=== PATIENT | female | born 1970 | race Caucasian/White ===

== ENCOUNTER 2021-01-28 07:48 | Day surgery (SDC) | payer BC ==
[2021-01-28] MEDS ORDERED: diazePAM 5 MG TAB PO STA (08:55)
[2021-01-28 08:59] VITALS: TEMP 98.1
--- NOTE | 2021-01-28 10:34 | FL ---
Fluoroscopic guided myelogram: CLINICAL HISTORY: Neck pain FINDINGS: The procedure was explained to the patient. The risks, complications, benefits and alternatives were discussed and any questions were answered. Informed consent was obtained. Patient was placed prone on the fluoroscopic table and prepped and draped in the usual sterile fashion. Utilizing a 25 gauge needle, access into the thecal sac at the L4-L5 levels achieved and there is instillation of 6 cc of nonionic contrast. The contrast column was manipulated into the cervical spine and the patient was sent to CT scan for postmyelogram CT Patient was stable throughout the procedure. No postprocedural complication. All elements of maximal barrier and sterile technique were utilized. No images were submitted. 2 minutes and 12 seconds of fluoroscopy provided. IMPRESSION: 1. Successful fluoroscopic-guided myelogram. CT scan to follow.
--- NOTE | 2021-01-28 12:44 | CT ---
EXAMINATION TYPE: CT cervical spine w con DATE OF EXAM: 01/28/2021 COMPARISON: None HISTORY: Neck pain CT DLP: 499.10 mGycm Automated exposure control for dose reduction was used. CONTRAST: 7 cc of intrathecal contrast was instilled during the course of a myelogram. FINDINGS: Alignment is anatomic. Vertebral body height and disc interspace appears well preserved. No compressi on deformities. At C2-C3 there is no disc herniation or canal stenosis. Neural foramina are patent. At C3-C4 there may be minimal central disc bulging but no disc herniation, canal stenosis or foramina l encroachment. At C4-C5 there is no disc herniation or canal stenosis. No foraminal encroachment. At C5-C6 there may be very minimal central disc bulging but there is no evidence of disc herniation o r foraminal encroachment. At C6-C7 no foraminal encroachment. A question of a very small central and right paracentral disc bul ge effacing the thecal sac. Neural foramina patent. At C7-T1 no obvious disc herniation, canal stenosis, or foraminal encroachment. There is calcification in the right lobe of thyroid with probable small nodule. Lung apices clear. Th ere is a 1 cm left parotid gland nodule. IMPRESSION: 1. There is minimal disc bulging at multiple levels as discussed above with no discrete herniation or foraminal encroachment. Disc spaces are well preserved. 2. 1 cm left parotid nodule recommend correlation with parotid gland ultrasound.
[2021-01-28 16:33] VITALS: RESP 16
[2021-01-28 16:46] VITALS: BP 131/66; PULSE 77
== END 2021-01-28 14:00 | disposition home or self-care (01) ==
LOC: RADPROMAIN 07:48
PROVIDERS: ATTEND Orthopaedic Surgery
DX: M50.122 Cervical disc disorder at C5-C6 level with radiculopathy (principal); M48.02 Spinal stenosis, cervical region; F17.210 Nicotine dependence, cigarettes, uncomplicated; Z82.49 Family history of ischemic heart disease and other diseases of the circulatory system; Z83.3 Family history of diabetes mellitus; E11.9 Type 2 diabetes mellitus without complications; E03.9 Hypothyroidism, unspecified; E05.00 Thyrotoxicosis with diffuse goiter without thyrotoxic crisis or storm; M60.9 Myositis, unspecified; M60.88 Other myositis, other site; I25.2 Old myocardial infarction; M47.9 Spondylosis, unspecified; Z98.891 History of uterine scar from previous surgery; Z98.51 Tubal ligation status; Z96.698 Presence of other orthopedic joint implants; Z98.890 Other specified postprocedural states; Z79.84 Long term (current) use of oral hypoglycemic drugs; Z79.1 Long term (current) use of non-steroidal anti-inflammatories (NSAID); Z79.82 Long term (current) use of aspirin; Z79.890 Hormone replacement therapy; Z79.899 Other long term (current) drug therapy; Z88.1 Allergy status to other antibiotic agents; Z88.5 Allergy status to narcotic agent; Z88.8 Allergy status to other drugs, medicaments and biological substances
CPT/HCPCS: 62302; 72126; Q9967

== ENCOUNTER 2021-05-29 07:46 | Day surgery (SDC) | payer BC ==
[~2021-05-29 07:46] MED LIST: LACTATED RINGERS 1,000 ML IV SCH; LIDOCAINE 1% (10MG/ML) FOR IV START INTRADERMA PRN
[2021-05-29 08:05] VITALS: TEMP 96
[2021-05-29 08:13] LABS: Glucose,Whole Blood 96 mg/dL (75-99)
[2021-05-29] MEDS ORDERED: MIDAZOLAM 2 MG/2 ML VIAL ONE (08:54)
[2021-05-29] MEDS ORDERED: IOPAMIDOL M200 10 ML VIAL ONE (08:54)
[2021-05-29] MEDS ORDERED: DEXAMETHASONE SOD PHOSPHATE 10 MG/ML 1 ML VIAL ONE (08:54)
[2021-05-29] MEDS ORDERED: fentaNYL (PF) 50 MCG/ML 2 ML AMP ONE (08:54)
[2021-05-29] MEDS ORDERED: ROPIVACAINE 5MG/ML 20ML VIAL ONE (08:54)
--- NOTE | 2021-05-29 09:41 | P.PCN ---
Date of Procedure: 05/29/21 Procedure(s) Performed: PREOPERATIVE DIAGNOSIS: 1-Cervical Spondylosis with Facet Arthropathy.without myelopathy. 2-cervical radiculopathy POSTOPERATIVE DIAGNOSIS: Same as preoperative diagnosis. PROCEDURES:1- Diagnostic Right C4 , C5 , and C6 medial branch blocks, with fluoroscopic guidance (fluoroscopy images available in radiology department ). 2- Left side cervical selective nerve root block at C5 6 level ANESTHESIA: Monitored anesthesia care as per anesthesia department . EBL: Minimal PROCEDURE INDICATION: The patient with neck pain secondary to cervical arthropathy unresponsive to more conservative treatments. PROCEDURE DESCRIPTION / TECHNIQUE: The patient was seen and identified in the preoperative area. Risks, benefits, complications, and alternatives were discussed with the patient, the patient agreed to proceed with the procedure and signed the consent. IV was started. Vital signs remained stable throughout the procedure. Do the left side selective nerve root block at C5 6, patient placed in supine position , the left side cervical area prepped with chlorhexedine, then local infiltration of the skin and subcu tissue infiltration with lidocaine 1% 2ml , and 25-gauge Quincke Needle advanced slowly under fluoroscopy and placed in the inferior border of C5 6 foraminal, then after needle placement confirmed with AP and lateral view Isovue 200 one mL injected and showed appropriate needle placement with spread in the foramina, of C5 6, then after negative aspiration for heme, and there was negative aspiration for cerebrospinal fluid, senators on 10 mg mixed with 1 ML of preservative-free normal saline mixed with her and injected after negative aspiration patient tolerated the procedure well without any complications . The patient was placed in the Lateral positions ( Right side up ) on the procedure table. The cervical area was prepped and draped in the usual sterile fashion. Critical pause was taken. Vital signs were closely monitored during the procedure. Conscious sedation was used during the procedure to decrease patients anxiety. Using cross-table lateral fluoroscopy, the centroid of the trapezoid of right C4 , C5 and C6, was identified, marked, and localized with 1% lidocaine 1 ml at each level for skin and Sub Q infiltrations . Subsequently, a 25 G 3 spinal needle was advanced guided by fluoroscopy to the centroid of the trapezoid of Right C4 , C5, C6 . Forman tip position was confirmed at the centroid of the trapezoids of Right C4 , C5 ,C6 with anteroposterior fluoroscopy. Subsequently, 2 ml of preservative-free Ropivacaine 0.5% mixed with Dexamethasone 10 mg and half ml of the mixture was injected after negative aspiration for blood and CSF. Forman was then removed inatct COMPLICATIONS: No acute complications. DISPOSITION / PLANS: The patient was placed in a supine position and transferred to the recovery area in a stable condition for observation and was discharged from the recovery room after meeting discharge criteria. Home discharge instructions given to the patient by the staff. The patient was reexamined prior to discharge. The patient will schedule a follow up in the clinic in 2-4 weeks.
[2021-05-29 09:44] VITALS: RESP 16
[2021-05-29] MEDS ORDERED: IV FLUID CONTINUATION 900 ML IV ONE (09:44)
[2021-05-29] MEDS ORDERED: LACTATED RINGERS 1,000 ML IV ONE (09:44)
[2021-05-29 09:59] VITALS: BP 133/85; PULSE 72
--- NOTE | 2021-05-29 12:53 | FL ---
Fluoroscopy INDICATION: Pain FINDINGS: Fluoroscopy time: 31 seconds. Images obtained: 5. IMPRESSIONS: 1. Documentation of fluoroscopy.
== END 2021-05-29 10:11 | disposition home or self-care (01) ==
LOC: ORPAIN 07:46
PROVIDERS: ATTEND Specialist
DX: M47.22 Other spondylosis with radiculopathy, cervical region (principal)
CPT/HCPCS: 64483; 64490; 64491; J2250; J1100; J3010; Q9966; J2795

== ENCOUNTER 2021-09-10 21:38 | Emergency (ER) | payer BC ==
[2021-09-10 22:43] VITALS: BP 150/81; PULSE 83; RESP 20; TEMP 97.9
[2021-09-10] MEDS ORDERED: FAMOTIDINE 20 MG TAB PO STA (23:24)
[2021-09-10] MEDS ORDERED: diphenhydrAMINE 50 MG CAP PO STA (23:24)
--- NOTE | 2021-09-11 00:07 | ED ---
General Adult HPI - General Chief complaint: Skin/Abscess/Foreign Body Stated complaint: Rash Time Seen by Provider: 09/10/21 22:49 Source: patient, RN notes reviewed Mode of arrival: ambulatory Limitations: no limitations - History of Present Illness Initial comments: 51-year-old female presents to the emergency Department with complaints of rash on bilateral upper extremities, onset 2 days ago. States the rash worsened yesterday and went to urgent care where she received an injection of steroid. Has been taking Benadryl and applying hydrocortisone topically. States she is a diabetic and had elevated blood sugar last night due to steroid injection. Complaints of increased itching. Reports rash continues to spread and now has a patchy area on her right lower abdomen. Patient recently had a nerve stimulator implanted. Denies any other medications. No travel or other new exposures. - Related Data Home Medications Medication Instructions Recorded Confirmed Ascorbic Acid [Vitamin C] 1,000 mg PO DAILY 01/09/21 05/27/21 Aspirin [Adult Low Dose Aspirin EC] 81 mg PO DAILY 01/09/21 05/27/21 Atorvastatin [Lipitor] 80 mg PO HS 01/09/21 05/27/21 Calcium Carbonate [Calcium] 1,200 mg PO DAILY 01/09/21 05/27/21 Cholecalciferol [Vitamin D3 (25 50 mcg PO DAILY 01/09/21 05/27/21 Mcg = 1000 Iu)] Cinnamon Bark [Cinnamon] 1,500 mg PO DAILY 01/09/21 05/27/21 Clopidogrel [Plavix] 75 mg PO DAILY 01/09/21 05/27/21 Cyanocobalamin (Vitamin B-12) 1,000 mcg PO DAILY 01/09/21 05/27/21 [Vitamin B-12] Dapagliflozin Propanediol [Farxiga] 10 mg PO DAILY 01/09/21 05/27/21 Ferrous Sulfate [Iron (65 MG 1 tab PO DAILY 01/09/21 05/27/21 Elemental)] Gabapentin [Neurontin] 300 mg PO TID 01/09/21 05/27/21 Levothyroxine Sodium 88 mcg PO DAILY 01/09/21 05/27/21 Semaglutide [Ozempic] 1 mg SQ WEEKLY 01/09/21 05/27/21 Turmeric Root Extract [Turmeric] 1 tab PO DAILY 01/09/21 05/27/21 Zinc 50 mg PO DAILY 01/09/21 05/27/21 glipiZIDE [Glucotrol XL] 10 mg PO DAILY 01/09/21 05/27/21 metFORMIN HCL 500 mg PO BID 01/09/21 05/27/21 DULoxetine HCL [Cymbalta] 20 mg PO DAILY 05/27/21 05/27/21 Vitamin B Complex 1 each PO DAILY 05/27/21 05/27/21 Allergies Allergy/AdvReac Type Severity Reaction Status Date / Time erythromycin base Allergy cardiac Verified 09/10/21 22:43 arrest methimazole Allergy depleated Verified 09/10/21 22:43 white blood cells morphine Allergy Nausea & Verified 09/10/21 22:43 Vomiting Review of Systems ROS Statement: Those systems with pertinent positive or pertinent negative responses have been documented in the HPI. ROS Other: All systems not noted in ROS Statement are negative. Past Medical History Past Medical History: Coronary Artery Disease (CAD), Diabetes Mellitus, Thyroid Disorder Additional Past Medical History / Comment(s): work injury 2018 -states she has nerve damage and left arm weakness History of Any Multi-Drug Resistant Organisms: None Reported Past Surgical History: Section, Heart Catheterization With Stent, Hysterectomy, Orthopedic Surgery, Tubal Ligation Additional Past Surgical History / Comment(s): left arm surgery times 4 for weakness and nerve damage, carpal tunnel release, radial and second dorsal compartment release, right toe surgery,cubital tunnel release lt arm Past Anesthesia/Blood Transfusion Reactions: No Reported Reaction, Family History of Problems w/ Anesthesia Additional Past Anesthesia/Blood Transfusion Reaction / Comment(s): no previous blood transfusion, mother has had problems with anesthesia-pt does not know details Date of Last Stent Placement:: November 2019 Past Psychological History: No Psychological Hx Reported Smoking Status: Current every day smoker Past Alcohol Use History: None Reported Past Drug Use History: None Reported - Past Family History Mother Family Medical History: Cancer, Diabetes Mellitus General Exam Limitations: no limitations (Well-developed, well-nourished female in no acute distress. Initial temperature 97.9, pulse 83, respirations 20, blood pressure 150/81, pulse ox 98% on room air.) General appearance: alert, in no apparent distress ENT exam: Present: normal exam, normal oropharynx, mucous membranes moist Neck exam: Present: normal inspection, full ROM. Absent: tenderness, meningismus, lymphadenopathy Respiratory exam: Present: normal lung sounds bilaterally. Absent: respiratory distress, wheezes, rales, rhonchi, stridor Cardiovascular Exam: Present: regular rate, normal rhythm, normal heart sounds. Absent: systolic murmur, diastolic murmur, rubs, gallop, clicks GI/Abdominal exam: Present: soft, normal bowel sounds. Absent: distended, tenderness, guarding, rebound, rigid Back exam: Present: other (Dressing intact from stimulator implant.) Neurological exam: Present: alert, oriented X3, CN II-XII intact Psychiatric exam: Present: normal affect, normal mood Skin exam: Present: rash Expanded Type of lesion: Present: rash Distribution of rash: abdomen (appears to be a contact dermatitis; erythematous base with scattered macules. Pruritis), RUE, LUE (Scattered papules and wheals. Non-erythematous base. Blanchable. Pruritis. ) Course Vital Signs 09/10/21 22:38 Temperature 97.9 F Pulse Rate 83 Respiratory 20 Rate Blood Pressure 150/81 O2 Sat by Pulse 98 Oximetry Medical Decision Making - Medical Decision Making 51-year-old female with a past medical history of type 2 diabetes presents to the emergency department for evaluation of rash to bilateral upper extremities and an abdominal wall.. Upon exam, patient is well-appearing and in no acute distress. She is having no systemic symptoms. Appearance of rash on bilateral arms is scattered papular rash-origin and etiology unknown. Rash on right lower abdomen is consistent with contact dermatitis- barrier placed between rash and likely culprit. Patient was seen at urgent care and given a steroid injection which caused a significant elevation in her blood sugar. States she took Benadryl at home yesterday and applied calamine and topical hydrocortisone. Is awaiting appointment with dermatology. I discussed my hesitation to prescribe any steroid due to patient's hyperglycemia. She is agreeable with this. Given oral Benadryl and Pepcid with no significant change. Instructed to continue home medication regimen and follow up with dermatology as soon as possible. Return parameters were discussed in detail. Patient verbalizes understanding and agrees with this plan. Attending: Ester. Disposition Clinical Impression: Pruritic rash Disposition: HOME SELF-CARE Condition: Stable Instructions (If sedation given, give patient instructions): Acute Rash (ED), Dermatitis (ED) Additional Instructions: Continue taking Benadryl and Pepcid for antihistamine. Continue applying topical agents including calamine and hydrocortisone. Follow-up with dermatology as soon as possible. Return to the emergency department with any new, worsening, or concerning symptoms such as fever, difficulty breathing, or chest pain. Is patient prescribed a controlled substance at d/c from ED?: No Referrals: Mumtaz Christianson DO [Primary Care Provider] - 1-2 days Time of Disposition: 01:21
== END 2021-09-11 01:25 | disposition home or self-care (01) ==
LOC: EC 21:38
DX: L29.9 Pruritus, unspecified (principal); I25.10 Atherosclerotic heart disease of native coronary artery without angina pectoris; E11.9 Type 2 diabetes mellitus without complications; E07.9 Disorder of thyroid, unspecified; F17.200 Nicotine dependence, unspecified, uncomplicated; Z88.6 Allergy status to analgesic agent; Z88.1 Allergy status to other antibiotic agents; Z88.8 Allergy status to other drugs, medicaments and biological substances; Z79.82 Long term (current) use of aspirin; Z79.899 Other long term (current) drug therapy
CPT/HCPCS: 99282

== ENCOUNTER 2021-11-15 23:24 | Observation (INO) | payer BC ==
--- NOTE | 2021-11-15 23:52 | ED ---
Chest Pain HPI - General Chief Complaint: Chest Pain Stated Complaint: Chest Pain & tightness Time Seen by Provider: 11/15/21 23:44 Source: patient, RN notes reviewed, old records reviewed Mode of arrival: ambulatory Limitations: no limitations - History of Present Illness Initial Comments: This is a 51-year-old female to the emergency department for evaluation. Patient resents today for evaluation of chest pain left-sided chest pain heaviness episodic for the last few days. Patient has seen a claims adjuster crop scheduled for stress test tomorrow. Patient has a history of 3 stents placed in her heart. This pain is been again persistent for a week or so blood progressively worsened tonight. No shortness of breath or sweating noted. No recent fever cough congestion or illness. Again patient has history of CAD and diabetes MD Complaint: chest pain -: days(s) Onset: during rest, during exertion Pain Location: left chest Pain Radiation: none Severity: moderate Severity scale (1-10): 5 Quality: heaviness Consistency: intermittent Improves With: nothing Worsens With: nothing Anginal Symptoms: dyspnea Other Symptoms: palpitations Treatments Prior to Arrival: none - Related Data Home Medications Medication Instructions Recorded Confirmed Ascorbic Acid [Vitamin C] 1,000 mg PO DAILY 01/09/21 05/27/21 Aspirin [Adult Low Dose Aspirin EC] 81 mg PO DAILY 01/09/21 05/27/21 Atorvastatin [Lipitor] 80 mg PO HS 01/09/21 05/27/21 Calcium Carbonate [Calcium] 1,200 mg PO DAILY 01/09/21 05/27/21 Cholecalciferol [Vitamin D3 (25 50 mcg PO DAILY 01/09/21 05/27/21 Mcg = 1000 Iu)] Cinnamon Bark [Cinnamon] 1,500 mg PO DAILY 01/09/21 05/27/21 Clopidogrel [Plavix] 75 mg PO DAILY 01/09/21 05/27/21 Cyanocobalamin (Vitamin B-12) 1,000 mcg PO DAILY 01/09/21 05/27/21 [Vitamin B-12] Dapagliflozin Propanediol [Farxiga] 10 mg PO DAILY 01/09/21 05/27/21 Ferrous Sulfate [Iron (65 MG 1 tab PO DAILY 01/09/21 05/27/21 Elemental)] Gabapentin [Neurontin] 300 mg PO TID 01/09/21 05/27/21 Levothyroxine Sodium 88 mcg PO DAILY 01/09/21 05/27/21 Semaglutide [Ozempic] 1 mg SQ WEEKLY 01/09/21 05/27/21 Turmeric Root Extract [Turmeric] 1 tab PO DAILY 01/09/21 05/27/21 Zinc 50 mg PO DAILY 01/09/21 05/27/21 glipiZIDE [Glucotrol XL] 10 mg PO DAILY 01/09/21 05/27/21 metFORMIN HCL 500 mg PO BID 01/09/21 05/27/21 DULoxetine HCL [Cymbalta] 20 mg PO DAILY 05/27/21 05/27/21 Vitamin B Complex 1 each PO DAILY 05/27/21 05/27/21 Allergies Allergy/AdvReac Type Severity Reaction Status Date / Time erythromycin base Allergy cardiac Verified 11/15/21 23:28 arrest methimazole Allergy depleated Verified 11/15/21 23:28 white blood cells morphine Allergy Nausea & Verified 11/15/21 23:28 Vomiting Review of Systems ROS Statement: Those systems with pertinent positive or pertinent negative responses have been documented in the HPI. ROS Other: All systems not noted in ROS Statement are negative. EKG Findings - EKG Comments: EKG Findings:: EKG is sinus rhythm 65 [place] 187 QRS 111 QTc 408. Has seen no ST elevation. EKG 2 shows sinus rhythm 70 [place] 194 QRS 111 QTc 432. Significant change. EKG 3 also shows no morphological changes or ST elevation Past Medical History Past Medical History: Coronary Artery Disease (CAD), Diabetes Mellitus, Thyroid Disorder Additional Past Medical History / Comment(s): work injury 2017 -states she has nerve damage and left arm weakness History of Any Multi-Drug Resistant Organisms: None Reported Past Surgical History: Section, Heart Catheterization With Stent, Hysterectomy, Orthopedic Surgery, Tubal Ligation Additional Past Surgical History / Comment(s): left arm surgery times 4 for weakness and nerve damage, carpal tunnel release, radial and second dorsal compartment release, right toe surgery,cubital tunnel release lt arm Past Anesthesia/Blood Transfusion Reactions: No Reported Reaction, Family History of Problems w/ Anesthesia Additional Past Anesthesia/Blood Transfusion Reaction / Comment(s): no previous blood transfusion, mother has had problems with anesthesia-pt does not know details Date of Last Stent Placement:: November 2019 Past Psychological History: No Psychological Hx Reported Smoking Status: Current every day smoker Past Alcohol Use History: None Reported Past Drug Use History: None Reported - Past Family History Mother Family Medical History: Cancer, Diabetes Mellitus General Exam Limitations: no limitations General appearance: alert, in no apparent distress Head exam: Present: atraumatic, normocephalic, normal inspection Eye exam: Present: normal appearance, PERRL, EOMI. Absent: scleral icterus, conjunctival injection, periorbital swelling ENT exam: Present: normal exam, mucous membranes moist Neck exam: Present: normal inspection. Absent: tenderness, meningismus, lymphadenopathy Respiratory exam: Present: normal lung sounds bilaterally. Absent: respiratory distress, wheezes, rales, rhonchi, stridor Cardiovascular Exam: Present: regular rate, normal rhythm, normal heart sounds. Absent: systolic murmur, diastolic murmur, rubs, gallop, clicks GI/Abdominal exam: Present: soft, normal bowel sounds. Absent: distended, tenderness, guarding, rebound, rigid Extremities exam: Present: normal inspection, full ROM, normal capillary refill. Absent: tenderness, pedal edema, joint swelling, calf tenderness Back exam: Present: normal inspection Neurological exam: Present: alert, oriented X3, CN II-XII intact Psychiatric exam: Present: normal affect, normal mood Skin exam: Present: warm, dry, intact, normal color. Absent: rash Course Vital Signs 11/15/21 11/15/21 11/16/21 23:25 23:52 00:32 Temperature 97.2 F L Pulse Rate 74 68 Pulse Rate [ 78 Apical] Respiratory 20 18 14 Rate Blood Pressure 167/93 129/89 O2 Sat by Pulse 100 97 Oximetry - Reevaluation(s) Reevaluation #1: 11/16/21 00:00 Medical records reviewed Reevaluation #2: 11/16/21 01:20 Patient still with chest pain here in the ER Reevaluation #3: 11/16/21 01:20 Patient informed of results and questions answered - Consultations Consultation #1: Spoke with sound who agrees to admit this patient Chest Pain MDM - MDM 51 female DF for evaluation patient has a for evaluation of chest pain patient has history of RI with 3 stents, patient will be admitted for chest pain observation Critical Care Time Critical Care Time: Yes Total Critical Care Time: 31 Disposition Clinical Impression: Chest pain, Unstable angina pectoris Disposition: ADMITTED IP TO THIS HOSP Condition: Undetermined Is patient prescribed a controlled substance at d/c from ED?: No Referrals: Mumtaz Christianson DO [Primary Care Provider] - 1-2 days Time of Disposition: 01:15
[2021-11-16 00:21] LABS: Basophils # (A) 0.1 k/uL (0-0.2); Basophils % (A) 1 %; Eosinophils # (A) 0.3 k/uL (0-0.7); Eosinophils % (A) 3 %; HCT 45.1 % (34.0-46.0); HGB 15.7 gm/dL (11.4-16.0); Lymphocytes # (A) 3.2 k/uL (1.0-4.8); Lymphocytes % (A) 29 %; MCH 30.9 pg (25.0-35.0); MCHC 34.8 g/dL (31.0-37.0); MCV 88.8 fL (80.0-100.0); Mean Platelet Volume 7.2; Monocytes # (A) 0.6 k/uL (0-1.0); Monocytes % (A) 5 %; Neutrophils # (A) 6.5 k/uL (1.3-7.7); Neutrophils % (A) 59 %; Platelet Count 336 k/uL (150-450); RBC 5.08 m/uL (3.80-5.40); RDW 12.5 % (11.5-15.5)
--- NOTE | 2021-11-16 00:25 | XR ---
EXAMINATION TYPE: XR chest 1V DATE OF EXAM: 11/15/2021 COMPARISON: NONE HISTORY: Chest pain TECHNIQUE: Single view FINDINGS: Heart is normal. Lungs are clear of infiltrate. No heart failure. There are no hilar masses . Bony thorax is intact. There are chest leads. IMPRESSION: Normal chest
[2021-11-16 00:26] LABS: INR 0.9 (<1.2); Partial Thromboplastin Time 23.8 sec (22.0-30.0); Prothrombin Time 9.7 sec (9.0-12.0)
[2021-11-16 00:28] LABS: ALT 28 U/L (4-34); AST 27 U/L (14-36); African American GFR (CKD) >90 (>60 ml/min/1.73 sqM); Albumin 4.6 g/dL (3.5-5.0); Alkaline Phosphatase 95 U/L (38-126); Anion Gap 14 mmol/L; Blood Urea Nitrogen 12 mg/dL (7-17); Carbon Dioxide 24 mmol/L (22-30); Chloride 101 mmol/L (98-107); Glucose 215 mg/dL (74-99); Magnesium 1.7 mg/dL (1.6-2.3); Non-African American GFR(CKD) >90 (>60 ml/min/1.73 sqM); Potassium 3.6 mmol/L (3.5-5.1); Sodium 139 mmol/L (137-145); Total Bilirubin 0.6 mg/dL (0.2-1.3); Total Protein 7.4 g/dL (6.3-8.2)
[2021-11-16] MEDS ORDERED: HYDROmorphone 1 MG/ML 1 ML SYRINGE IVP STA (01:12)
[2021-11-16] MEDS ORDERED: NITROGLYCERIN SL TABS 0.4 MG TAB SUBLINGUAL PRN ×2 (01:18→13:07)
[2021-11-16] MEDS ORDERED: HEPARIN SODIUM 1,000 UN/ML (10ML VL) IV ONE (01:18)
[2021-11-16] MEDS ORDERED: ASPIRIN 81 MG PO STA (01:18)
[2021-11-16] MEDS ORDERED: HEPARIN SOD,PORK IN 0.45% NACL 25,000 UNIT in 0.45% NACL 1 250ML.BAG IV SCH (01:30)
[2021-11-16] MEDS: SODIUM CHLORIDE 0.9% 1,000 ML IV SCH (01:33)
--- NOTE | 2021-11-16 04:51 | P.HPIM ---
History of Present Illness H&P Date: 11/16/21 The patient is a 51-year-old female with a PMH of type II DM, CAD status post stenting, and hypothyroid rhythm who presents to the emergency room with complaints of chest pain. The patient reports that she has been experiencing intermittent substernal chest discomfort since this past Tuesday. Reports seeing her curator in the clinic on Tuesday and that she is scheduled to undergo a stress test in the morning. States however that her pain acutely worsened earlier today, at which point she decided to come to the emergency room. Reports 68 out of 10 substernal chest tightness, nonradiating, constant, with no alleviating or exacerbating features. Reports associated shortness of breath and nausea. Reports the pain is similar to when she had her prior MIs requiring stenting. Denies expressing fever, chills, cough, lower stomach swelling, lower extremities pain. EKG emergency room reveals sinus rhythm at 65 bpm with diffuse T-wave flattening with poor R-wave progression. Chest x-ray was unremarkable. Laboratory evaluation was remarkable for troponin less than 0.012 with WBC count 11.0. Review of systems: Pertinent positives and negatives as discussed in HPI, a complete review of systems was performed and all other systems are negative. Physical examination: General: non toxic, no distress, appears at stated age, obese Derm: no unusual rashes/lesions, warm Head: atraumatic, normocephalic, symmetric Eyes: EOMI, no lid lag, anicteric sclera, pupils equal round reactive to light ENT: Nose and ears atraumatic Neck: No cervical lymphadenopathy, trachea midline, supple Mouth: no lip lesion, mucus membranes moist Cardiovascular: S1S2 reg, no murmur, positive dorsalis pedis pulse bilateral, no edema Lungs: CTA bilateral, no rhonchi, no rales, no accessory muscle use Abdominal: soft, nontender to palpation, no guarding Ext: muscle strength 5 out of 5 in all 4 extremities grossly, no gross muscle atrophy, no contractures, Neuro: CN II-XI grossly intact, no gross focal neuro deficits Psych: Alert, oriented, appropriate affect Assessment/plan Unstable angina -Continue with heparin infusion, aspirin, statin -Cardiology consulted -Trend troponin -Cardiac monitoring Leukocytosis -Likely due to acute stressor -No signs of active infection at this time Chronic conditions: Type II DM, hypothyroidism -Continue with home medications once confirmed DVT prophylaxis -Heparin infusion The patient is admitted with an anticipated less than 2 midnight stay for evaluation of unstable angina CODE STATUS: Full Code Discussed with: Patient Anticipated discharge date: in am Anticipated discharge place: Home Past Medical History Past Medical History: Coronary Artery Disease (CAD), Diabetes Mellitus, Thyroid Disorder Additional Past Medical History / Comment(s): work injury 2018 -states she has nerve damage and left arm weakness History of Any Multi-Drug Resistant Organisms: None Reported Past Surgical History: Section, Heart Catheterization With Stent, Hysterectomy, Orthopedic Surgery, Tubal Ligation Additional Past Surgical History / Comment(s): left arm surgery times 4 for weakness and nerve damage, carpal tunnel release, radial and second dorsal compartment release, right toe surgery,cubital tunnel release lt arm Past Anesthesia/Blood Transfusion Reactions: No Reported Reaction, Family History of Problems w/ Anesthesia Additional Past Anesthesia/Blood Transfusion Reaction / Comment(s): no previous blood transfusion, mother has had problems with anesthesia-pt does not know details Date of Last Stent Placement:: November 2019 Past Psychological History: No Psychological Hx Reported Smoking Status: Current every day smoker Past Alcohol Use History: None Reported Past Drug Use History: None Reported - Past Family History Mother Family Medical History: Cancer, Diabetes Mellitus Medications and Allergies Home Medications Medication Instructions Recorded Confirmed Type Ascorbic Acid [Vitamin C] 1,000 mg PO DAILY 01/09/21 05/27/21 History Aspirin [Adult Low Dose Aspirin EC] 81 mg PO DAILY 01/09/21 05/27/21 History Atorvastatin [Lipitor] 80 mg PO HS 01/09/21 05/27/21 History Calcium Carbonate [Calcium] 1,200 mg PO DAILY 01/09/21 05/27/21 History Cholecalciferol [Vitamin D3 (25 50 mcg PO DAILY 01/09/21 05/27/21 History Mcg = 1000 Iu)] Cinnamon Bark [Cinnamon] 1,500 mg PO DAILY 01/09/21 05/27/21 History Clopidogrel [Plavix] 75 mg PO DAILY 01/09/21 05/27/21 History Cyanocobalamin (Vitamin B-12) 1,000 mcg PO DAILY 01/09/21 05/27/21 History [Vitamin B-12] Dapagliflozin Propanediol [Farxiga] 10 mg PO DAILY 01/09/21 05/27/21 History Ferrous Sulfate [Iron (65 MG 1 tab PO DAILY 01/09/21 05/27/21 History Elemental)] Gabapentin [Neurontin] 300 mg PO TID 01/09/21 05/27/21 History Levothyroxine Sodium 88 mcg PO DAILY 01/09/21 05/27/21 History Semaglutide [Ozempic] 1 mg SQ WEEKLY 01/09/21 05/27/21 History Turmeric Root Extract [Turmeric] 1 tab PO DAILY 01/09/21 05/27/21 History Zinc 50 mg PO DAILY 01/09/21 05/27/21 History glipiZIDE [Glucotrol XL] 10 mg PO DAILY 01/09/21 05/27/21 History metFORMIN HCL 500 mg PO BID 01/09/21 05/27/21 History DULoxetine HCL [Cymbalta] 20 mg PO DAILY 05/27/21 05/27/21 History Vitamin B Complex 1 each PO DAILY 05/27/21 05/27/21 History Allergies Allergy/AdvReac Type Severity Reaction Status Date / Time erythromycin base Allergy cardiac Verified 11/15/21 23:28 arrest methimazole Allergy depleated Verified 11/15/21 23:28 white blood cells morphine Allergy Nausea & Verified 11/15/21 23:28 Vomiting Physical Exam Vitals: Vital Signs Temp Pulse Pulse Resp BP Pulse Ox 11/16/21 04:28 66 18 118/77 96 11/16/21 03:27 70 14 102/74 98 11/16/21 01:28 70 14 114/78 97 11/16/21 00:32 78 14 11/15/21 23:52 68 18 129/89 97 11/15/21 23:25 97.2 F L 74 20 167/93 100 Intake and Output 11/15/21 11/15/21 11/16/21 14:59 22:59 06:59 Other: Weight 83.007 kg Results CBC & Chem 7: 11/15/21 23:51 11/15/21 23:51 Labs: Abnormal Lab Results - Last 24 Hours (Table) 11/15/21 11/15/21 Range/Units 23:51 23:51 WBC 11.0 H (3.8-10.6) k/uL Glucose 215 H (74-99) mg/dL
[2021-11-16] MEDS: ATORVASTATIN 80 MG TAB PO SCH ×2 (05:33→21:14)
[2021-11-16] MEDS: HYDROmorphone 1 MG/ML 1 ML SYRINGE IVP PRN ×2 (05:39→16:15)
[2021-11-16] MEDS ORDERED: CAFFEINE CITRATE 60 MG/3 ML VIAL IV PRN (08:52)
[2021-11-16] MEDS ORDERED: AMINOPHYLLINE 500 MG/20 ML VIAL IV PRN (08:52)
[2021-11-16] MEDS ORDERED: REGADENOSON 0.4 MG/5 ML SYRINGE IV PRN (08:52)
[2021-11-16] MEDS: GABAPENTIN 300 MG CAP PO SCH ×3 (09:31→21:14)
[2021-11-16] MEDS: LEVOTHYROXINE 88 MCG TAB PO SCH (09:31)
[2021-11-16] MEDS: CLOPIDOGREL 75 MG TAB PO SCH (09:31)
--- NOTE | 2021-11-16 10:06 | P.CRDCN ---
History of Present Illness History of present illness: HISTORY OF PRESENT ILLNESS: This is a 51 year old female with a past medical history significant for coronary artery disease with previous PCI x 3 stents in 2019 (vessel unknown), diabetes, hyperlipidemia, and nicotine dependence. Patient follows with a telephone information supervisor and Harish Martini. We have been asked to see the patient in consultation for chest pain. Patient examined at the bedside. Patient states that she began having chest pain couple weeks ago. She states described the pain as a tightness in the middle of her chest. She also reports having some pain and tingling in her left arm. She reports having nausea as well as hot flashes. She states the pain is nonexertional. She reports she is still having pain this morning and is rating it a 7/10. She states that she feels better when she is sitting up in the bed. She states that she went to see her physician on Tuesday and she was ordered to have a stress test this morning and Harish Martini. * EKG reveals sinus mechanism with no signs of acute ischemia. * Chest xray negative for acute process * Laboratory data: WBC 11.0. Hemoglobin 15.7. Platelet count 336. Sodium 139. Potassium 3.6. BUN 12. Creatinine 0.56. Magnesium 1.7. Troponin negative 3. * Current home cardiac medications include aspirin 81 mg daily, Lipitor 80 mg at night, Plavix 75 mg daily REVIEW OF SYSTEMS: At the time of my exam: CONSTITUTIONAL: Denies fever or chills. HEENT: Denies blurred vision, vision changes, or eye pain. Denies hemoptysis CARDIOVASCULAR: Denies chest pain. Denies orthopnea. Denies PND. Denies palpitations RESPIRATORY: Denies shortness of breath. GASTROINTESTINAL: Denies abdominal pain. Denies nausea or vomiting. HEMATOLOGIC: Denies bleeding disorders. GENITOURINARY: Denies any blood in urine. SKIN: Denies pruitis. Denies rash. PHYSICAL EXAM: VITAL SIGNS: Reviewed. GENERAL: Well-developed in no acute distress. HEENT: Head is normocephalic. Pupils are equal, round. Sclerae anicteric. Mucous membranes of the mouth are moist. Neck supple. No JVD or thyromegaly LUNGS: Respirations even and unlabored. Lungs essentially clear to auscultation bilaterally. HEART: Regular rate and rhythm. S1 and S2 heard. ABDOMEN: Soft. Nondistended. Nontender. EXTREMITIES: Normal range of motion. No clubbing or cyanosis. Peripheral pulses intact. No lower extremity edema NEUROLOGIC: Awake and alert. Oriented x 3. ASSESSMENT: Chest pain Coronary artery disease with previous PCI x 3 (exact details unknown) Hyperlipidemia Diabetes Nicotine dependence PLAN: An acute coronary event has been ruled out Resume home cardiac medications Add metoprolol 12.5 daily Continue telemetry monitoring Check BNP Obtain records from patients primary telephone information supervisor Obtain 2D echo to assess cardiac structure and function Patient to undergo [place] scan stress test today Further recommendations pending patient course Nurse practitioner note has been reviewed by physician. Signing provider agrees with the documented findings, assessment, and plan of care. Past Medical History Past Medical History: Coronary Artery Disease (CAD), Diabetes Mellitus, Thyroid Disorder Additional Past Medical History / Comment(s): work injury 2018 -states she has nerve damage and left arm weakness History of Any Multi-Drug Resistant Organisms: None Reported Past Surgical History: Section, Heart Catheterization With Stent, Hysterectomy, Orthopedic Surgery, Tubal Ligation Additional Past Surgical History / Comment(s): left arm surgery times 4 for weakness and nerve damage, carpal tunnel release, radial and second dorsal compartment release, right toe surgery,cubital tunnel release lt arm Past Anesthesia/Blood Transfusion Reactions: No Reported Reaction, Family History of Problems w/ Anesthesia Additional Past Anesthesia/Blood Transfusion Reaction / Comment(s): no previous blood transfusion, mother has had problems with anesthesia-pt does not know details Date of Last Stent Placement:: November 2019 Past Psychological History: No Psychological Hx Reported Smoking Status: Current every day smoker Past Alcohol Use History: None Reported Past Drug Use History: None Reported - Past Family History Mother Family Medical History: Cancer, Diabetes Mellitus Medications and Allergies Home Medications Medication Instructions Recorded Confirmed Type Ascorbic Acid [Vitamin C] 1,000 mg PO DAILY 01/09/21 11/16/21 History Aspirin [Adult Low Dose Aspirin EC] 81 mg PO DAILY 01/09/21 11/16/21 History Atorvastatin [Lipitor] 80 mg PO HS 01/09/21 11/16/21 History Calcium Carbonate [Calcium] 1,200 mg PO DAILY 01/09/21 11/16/21 History Cinnamon Bark [Cinnamon] 1,500 mg PO DAILY 01/09/21 11/16/21 History Clopidogrel [Plavix] 75 mg PO DAILY 01/09/21 11/16/21 History Cyanocobalamin (Vitamin B-12) 1,000 mcg PO DAILY 01/09/21 11/16/21 History [Vitamin B-12] Dapagliflozin Propanediol [Farxiga] 10 mg PO DAILY 01/09/21 11/16/21 History Ferrous Sulfate [Iron (65 MG 325 mg PO DAILY 01/09/21 11/16/21 History Elemental)] Gabapentin [Neurontin] 300 mg PO TID 01/09/21 11/16/21 History Levothyroxine Sodium 88 mcg PO DAILY 01/09/21 11/16/21 History Semaglutide [Ozempic] 1 mg SQ WE 01/09/21 11/16/21 History Turmeric Root Extract [Turmeric] 500 mg PO DAILY 01/09/21 11/16/21 History Zinc 50 mg PO DAILY 01/09/21 11/16/21 History glipiZIDE [Glucotrol XL] 10 mg PO AC-SUPPER 01/09/21 11/16/21 History metFORMIN HCL 500 mg PO BID 01/09/21 11/16/21 History Vitamin B Complex 1 cap PO DAILY 05/27/21 11/16/21 History Cholecalciferol (Vitamin D3) 125 mcg PO DAILY 11/16/21 11/16/21 History [Vitamin D3 (125 MCG = 5,000 IU)] Allergies Allergy/AdvReac Type Severity Reaction Status Date / Time erythromycin base Allergy cardiac Verified 11/16/21 07:54 arrest methimazole AdvReac depleated Verified 11/16/21 07:54 white blood cells morphine AdvReac Nausea & Verified 11/16/21 07:54 Vomiting Physical Exam Vitals: Vital Signs Temp Pulse Pulse Resp BP Pulse Ox 11/16/21 07:48 62 18 109/69 97 11/16/21 04:28 66 18 118/77 96 11/16/21 03:27 70 14 102/74 98 11/16/21 01:28 70 14 114/78 97 11/16/21 00:32 78 14 11/15/21 23:52 68 18 129/89 97 11/15/21 23:25 97.2 F L 74 20 167/93 100 Intake and Output 11/15/21 11/16/21 11/16/21 22:59 06:59 14:59 Other: Weight 83.007 kg Results 11/15/21 23:51 11/15/21 23:51 Cardiac Enzymes 11/15/21 11/15/21 11/16/21 Range/Units 23:51 23:51 05:05 AST 27 (14-36) U/L Troponin I <0.012 <0.012 (0.000-0.034) ng/mL Coagulation 11/15/21 11/16/21 Range/Units 23:51 07:08 PT 9.7 (9.0-12.0) sec APTT 23.8 34.9 H (22.0-30.0) sec CBC 11/15/21 Range/Units 23:51 WBC 11.0 H (3.8-10.6) k/uL RBC 5.08 (3.80-5.40) m/uL Hgb 15.7 (11.4-16.0) gm/dL Hct 45.1 (34.0-46.0) % Plt Count 336 (150-450) k/uL Comprehensive Metabolic Panel 11/15/21 Range/Units 23:51 Sodium 139 (137-145) mmol/L Potassium 3.6 (3.5-5.1) mmol/L Chloride 101 (98-107) mmol/L Carbon Dioxide 24 (22-30) mmol/L BUN 12 (7-17) mg/dL Creatinine 0.56 (0.52-1.04) mg/dL Glucose 215 H (74-99) mg/dL Calcium 10.0 (8.4-10.2) mg/dL AST 27 (14-36) U/L ALT 28 (4-34) U/L Alkaline Phosphatase 95 (38-126) U/L Total Protein 7.4 (6.3-8.2) g/dL Albumin 4.6 (3.5-5.0) g/dL Current Medications Generic Name Dose Route Start Last Admin Trade Name Freq PRN Reason Stop Dose Admin Aspirin 325 mg 11/17/21 09:00 Aspirin 325 Mg Tab PO DAILY YUNI Atorvastatin Calcium 80 mg 11/16/21 04:51 11/16/21 05:33 Atorvastatin 80 Mg Tab PO Not Given HS YUNI Hydromorphone HCl 1 mg 11/16/21 01:18 11/16/21 05:39 Hydromorphone 1 Mg/Ml 1 Ml Syringe IVP 1 mg Q4HR PRN Administration Pain Sodium Chloride 1,000 mls @ 20 mls/hr 11/16/21 01:30 11/16/21 01:33 Saline 0.9% IV 20 mls/hr .Q24H YUNI Administration Heparin Sodium/Sodium Chloride 250 mls @ 9.961 mls/hr 11/16/21 01:30 11/16/21 01:30 25,000 unit/ Sodium Chloride IV 12 units/kg/hr .Q24H YUNI 9.961 mls/hr Administration Protocol 12 UNITS/KG/HR Nitroglycerin 0.4 mg 11/16/21 01:18 11/16/21 03:27 Nitroglycerin Sl Tabs 0.4 Mg Tab SUBLINGUAL 0.4 mg Q5M PRN Administration Chest Pain Intake and Output 11/15/21 11/16/21 11/16/21 22:59 06:59 14:59 Other: Weight 83.007 kg 11/15/21 23:51 11/15/21 23:51
--- NOTE | 2021-11-16 12:27 | NM ---
EXAMINATION TYPE: NM stress lexiscan cardiolite DATE OF EXAM: 11/16/2021 COMPARISON: NONE HISTORY: Chest pain TECHNIQUE: After the intravenous administration of 10.1 mCi Tc 99m Sestamibi - Cardiolite resting SP ECT images acquired 70 minutes post injection. The patient received 0.4mg Lexiscan, 25.4 mCi Tc 99m Sestamibi - Stress images obtained [address] injection FINDINGS: Review of stress and rest SPECT images demonstrates moderate predominantly fixed perfusion abnormalit y of the apex and apical inferior myocardium suspicious for remote infarct. There is corresponding wa ll motion defect. Gated analysis shows normal wall motion with an estimated left ventricular ejection fraction of 44 %. IMPRESSION: Ejection fraction of only 44% with predominantly fixed defect involving the apex and apic al inferior myocardium suggestive of remote infarct. No definitive stress-induced reversible ischemia identified. The need to further investigate with direct catheter angiography should be based on degr ee of clinical suspicion EKG correlation.
[2021-11-16] MEDS ORDERED: ALPRAZolam 0.25 MG TAB PO PRN (13:07)
[2021-11-16] MEDS ORDERED: ALPRAZolam 0.5 MG TAB PO PRN (13:07)
--- NOTE | 2021-11-16 15:11 | P.PN ---
Subjective Progress Note Date: 11/16/21 Hospital course: Patient is a very pleasant 51-year-old female with a past medical history of CAD status post stenting on dual antiplatelet therapy with aspirin and Plavix, hyperlipidemia, hypothyroidism, and [id number] diabetes mellitus type 2. She presented to the emergency department with a chief complaint of intermittent chest pain described as a tightness accompanied by mild shortness of breath and nausea. In the emergency department, patient underwent full evalu ation. An EKG was completed showing sinus rhythm at 65 bpm. Chest x-ray negative for acute cardiopulmonary process. CBC revealing mild leukocytosis with WBC count of 11.0. Coags unremarkable. CMP showing no significant abnormalities with the exception of mildly elevated glucose of 215. Troponin negative at less than 0.012. Patient admitted under our services with consultation to cardiology. Troponins trended overnight all negative at less than 0.0123 draws. Patient reports continued tightness/pain due to midsternal chest unchanged. Lexiscan stress test was completed revealing an ejection fraction of 44% with a moderate predominantly fixed perfusion abnormality of the apex of the apical inferior myocardium suspicious for remote infarct, negative for stress-induced reversible ischemia. Cardiology recommending patient undergo cardiac cath. Physical exam: Patient seen and evaluated at bedside in the emergency department. She continues to report a mild pain/tightness in her midsternal chest. She denies having any radiation of pain and denies having any accompanying symptoms at this time including headache, lightheadedness, dizziness, limitations, shortness of breath, or experiencing any numbness/tingling/weakness in her extremities.. Vital signs reviewed and stable. General: Nontoxic, no distress and appears stated age. Derm: Skin warm and dry, normal coloration for ethnicity. Head: Atraumatic, normocephalic and symmetric. Eyes: EOMs intact, no lid lag, and anicteric sclera Mouth: no lip lesions, mucus membranes moist Cardiovascular: regular rate and rhythm with normal S1S2, no murmur, positive posterior tibial pulses bilaterally, and cap refill < 2 seconds. Lungs: Respirations even, regular, and unlabored on room air. Lungs CTA bilaterally, no rhonchi, no rales, no wheezing, and no accessory muscle usage. Abdominal: soft, nontender to palpation, no guarding, no appreciable organomegaly Ext: ROM intact. No gross muscle atrophy, no edema, no contractures Neuro: Speech clear, face symmetrical and CN II-XII grossly intact with no noted focal neuro deficits Psych: Alert and oriented to person, place, time, and situation. Appropriate and pleasant affect. Assessment and Plan of Care: Chest pain, rule out unstable angina History of CAD with previous stenting on dual antiplatelet therapy with aspirin and Plavix -Continue with heparin infusion, aspirin, statin -Cardiology following, planning to take patient for cardiac cath tomorrow morning. -Troponins negative -Lexiscan stress test was completed revealing an ejection fraction of 44% with a moderate predominantly fixed perfusion abnormality of the apex of the apical inferior myocardium suspicious for remote infarct, negative for stress-induced reversible ischemia. -Cardiac monitoring Leukocytosis -Likely due to acute stressor -No signs of active infection at this time Hyperlipidemia -Continue daily medication regimen with atorvastatin. Hypothyroidism -Continue daily medication regimen with levothyroxine. [id number] diabetes mellitus type 2 -Place patient on glycemic protocol with NovoLog sliding scale. CODE STATUS: Full code DVT prophylaxis: Heparin Discussed with: Patient and RN Anticipated discharge date: 1-[address]: Home A total of 34 minutes was spent on the care of this complex patient more than 50% of the time was spent in counseling and care coordination. .I reviewed the documentation as provided by the ELLE above, who is the original author of this note. I agree with the documented assessment and plan, with the following changes: none Objective - Vital Signs Vital signs: Vital Signs Temp 97.2 F L 11/15/21 23:25 Pulse 62 11/16/21 07:48 Resp 18 11/16/21 07:48 BP 109/69 11/16/21 07:48 Pulse Ox 97 11/16/21 07:48 FiO2 Intake & Output 11/15/21 11/16/21 11/16/21 18:59 06:59 18:59 Weight 83.007 kg - Labs CBC & Chem 7: 11/15/21 23:51 11/15/21 23:51 Labs: Abnormal Lab Results - Last 24 Hours (Table) 11/15/21 11/15/21 11/16/21 Range/Units 23:51 23:51 07:08 WBC 11.0 H (3.8-10.6) k/uL APTT 34.9 H (22.0-30.0) sec Glucose 215 H (74-99) mg/dL
[2021-11-16 20:55] LABS: Glucose,Whole Blood 226 mg/dL (70-110)
[2021-11-16] MEDS: SODIUM CHLORIDE 0.9% 1,000 ML in EMPTY BAG 1 BAG IV SCH (21:15)
[2021-11-16] MEDS: INSULIN ASPART (NovoLOG) 100 UNIT/ML VIAL SQ SCH (21:56)
[2021-11-17] MEDS: SODIUM CHLORIDE 0.9% 1,000 ML IV SCH (01:26)
[2021-11-17] MEDS: LEVOTHYROXINE 88 MCG TAB PO SCH (04:59)
[2021-11-17] MEDS ORDERED: ATORVASTATIN 80 MG TAB PO ONE (05:00)
[2021-11-17] MEDS ORDERED: ASPIRIN 325 MG TAB PO ONE (05:00)
[2021-11-17 06:49] LABS: Glucose,Whole Blood 155 mg/dL (70-110)
[2021-11-17] MEDS ORDERED: HEPARIN SODIUM,PORCINE 10,000 UNIT in SODIUM CHLORIDE 0.9% 1,000 ML IRRIGATION PRN (07:00)
[2021-11-17] MEDS ORDERED: HEPARIN SODIUM,PORCINE 2,500 UNIT in SODIUM CHLORIDE 0.9% 250 ML IRRIGATION PRN (07:00)
[2021-11-17] MEDS: INSULIN ASPART (NovoLOG) 100 UNIT/ML VIAL SQ SCH ×2 (07:30→13:25)
[2021-11-17 08:29] VITALS: TEMP 97.8
[2021-11-17] MEDS ORDERED: ASPIRIN 325 MG TAB PO SCH (09:00)
[2021-11-17] MEDS ORDERED: ASPIRIN 81 MG PO SCH (09:00)
[2021-11-17] MEDS ORDERED: METOPROLOL TARTRATE 12.5 MG TAB PO SCH (09:00)
[2021-11-17] MEDS: CLOPIDOGREL 75 MG TAB PO SCH (09:34)
[2021-11-17] MEDS: GABAPENTIN 300 MG CAP PO SCH (09:35)
[2021-11-17] MEDS ORDERED: VERAPAMIL 2.5 MG/ML 2 ML AMP ONE (09:54)
[2021-11-17] MEDS ORDERED: fentaNYL (PF) 50 MCG/ML 2 ML AMP ONE (09:56)
[2021-11-17] MEDS ORDERED: MIDAZOLAM 2 MG/2 ML VIAL IV ONE ×2 (10:05)
[2021-11-17] MEDS ORDERED: fentaNYL (PF) 50 MCG/ML 2 ML AMP IV ONE (10:06)
[2021-11-17] MEDS ORDERED: VERAPAMIL SYRINGE (5 MG/10 ML) INTRAARTER ONE (10:06)
[2021-11-17] MEDS ORDERED: LIDOCAINE 1% INJ 10MG/ML (30 ML VIAL-PF) SQ ONE (10:06)
[2021-11-17] MEDS ORDERED: HEPARIN SODIUM 1,000 UN/ML (10ML VL) IV ONE (10:14)
[2021-11-17] MEDS ORDERED: SODIUM CHLORIDE 0.9% 1,000 ML IV ONE (10:15)
[2021-11-17] MEDS ORDERED: IOPAMIDOL-370 125ML BTL INJ ONE (10:20)
[2021-11-17 10:43] LABS: African American GFR (CKD) 123.2 (60.0-200.0); Carbon Dioxide 24.4 mmol/L (20.0-27.5); Chloride 104 mmol/L (96-109); Chol/HDL Ratio 4.58 Ratio; Glucose 156 mg/dL (70-110); LDL Cholesterol,Calculated 73.9 mg/dL (0.0-131.0); Non-African American GFR(CKD) 106.3 (60.0-200.0); Potassium 4.2 mmol/L (3.5-5.5); Sodium 137 mmol/L (135-145)
[2021-11-17 11:36] LABS: Glucose,Whole Blood 248 mg/dL (70-110)
[2021-11-17 11:58] VITALS: RESP 16
[2021-11-17] MEDS: SODIUM CHLORIDE 0.9% 1,000 ML in EMPTY BAG 1 BAG IV SCH (12:09)
[2021-11-17 14:55] VITALS: BP 119/71; PULSE 70
--- NOTE | 2021-11-17 15:58 | P.DS ---
Providers Date of admission: 11/16/21 13:35 Expected date of discharge: 11/17/21 Attending physician: Dima Raman MD Consults: 11/16/21 01:18 Consult Physician Urgent Consulting Provider: Kamaljit Vásquez Consult Reason/Comments: cp Do you want consulting provider notified?: Yes Primary care physician: Mumtaz Christianson Hospital Course: Discharge Diagnosis: Chest pain History of CAD Leukocytosis Dyslipidemia Hypothyroidism Vnc-vgogral-mvythyfil diabetes mellitus type 2 Hospital Course: 51-year-old female with history of CAD status post stent, dyslipidemia, hypothyroidism, ubw-opltuzq-zmbmrzorz diabetes presented with intermittent chest pain, and mild shortness of breath and nausea. Patient was evaluated by cardiology. Troponins were negative. Patient continued to have persistent chest pain. Lexiscan stress test showed ejection fraction of 44% with moderate predominantly fixed perfusion abnormality of the apex of the apical inferior myocardium suspicious for a remote infarct, negative for stress-induced reversible ischemia. Patient underwent cardiac catheterization, and reportedly did not have any significant stenosis requiring interventions. Patient to be discharged on aspirin and Plavix, beta kimberley, atorvastatin. She will follow up with cardiology as an outpatient within 1 week. Patient to also be discharged on hydroxyzine for anxiety. Patient seen and examined at bedside. Vital signs reviewed and stable. General: nontoxic, no distress, appears at stated age Derm: warm, dry Head: atraumatic, normocephalic, symmetric Eyes: EOMI, no lid lag, anicteric sclera Mouth: no lip lesion, mucus membranes moist Cardiovascular: S1S2 reg, no murmur Lungs: CTA bilateral, no rhonchi, no rales , no accessory muscle use Abdominal: soft, nontender to palpation, no guarding, no appreciable organomegaly Ext: no gross muscle atrophy, no edema, no contractures Neuro: CN II-XI grossly intact, no focal neuro deficits Psych: Alert, oriented, appropriate affect A total of 39 minutes of time were spent preparing this complex discharge summary. Patient was discharged on 11/17/21 at 13:34. Patient Condition at Discharge: Stable Plan - Discharge Summary Discharge Rx Participant: No New Discharge Prescriptions: New Metoprolol Tartrate [Lopressor] 12.5 mg PO DAILY #30 tab hydrOXYzine HCL 25 mg PO Q8HR PRN #30 tab PRN Reason: Anxiety Continue Cyanocobalamin (Vitamin B-12) [Vitamin B-12] 1,000 mcg PO DAILY Ascorbic Acid [Vitamin C] 1,000 mg PO DAILY Calcium Carbonate [Calcium] 1,200 mg PO DAILY Atorvastatin [Lipitor] 80 mg PO HS Levothyroxine Sodium 88 mcg PO DAILY Semaglutide [Ozempic] 1 mg SQ WE Cholecalciferol (Vitamin D3) [Vitamin D3 (125 MCG = 5,000 IU)] 125 mcg PO DAILY Ferrous Sulfate [Iron (65 MG Elemental)] 325 mg PO DAILY Cinnamon Bark [Cinnamon] 1,500 mg PO DAILY Zinc 50 mg PO DAILY Aspirin [Adult Low Dose Aspirin EC] 81 mg PO DAILY Clopidogrel [Plavix] 75 mg PO DAILY glipiZIDE [Glucotrol XL] 10 mg PO AC-SUPPER Gabapentin [Neurontin] 300 mg PO TID metFORMIN HCL 500 mg PO BID Dapagliflozin Propanediol [Farxiga] 10 mg PO DAILY Turmeric Root Extract [Turmeric] 500 mg PO DAILY Vitamin B Complex 1 cap PO DAILY Discharge Medication List Ascorbic Acid [Vitamin C] 1,000 mg PO DAILY 01/09/21 [History] Aspirin [Adult Low Dose Aspirin EC] 81 mg PO DAILY 01/09/21 [History] Atorvastatin [Lipitor] 80 mg PO HS 01/09/21 [History] Calcium Carbonate [Calcium] 1,200 mg PO DAILY 01/09/21 [History] Cinnamon Bark [Cinnamon] 1,500 mg PO DAILY 01/09/21 [History] Clopidogrel [Plavix] 75 mg PO DAILY 01/09/21 [History] Cyanocobalamin (Vitamin B-12) [Vitamin B-12] 1,000 mcg PO DAILY 01/09/21 [History] Dapagliflozin Propanediol [Farxiga] 10 mg PO DAILY 01/09/21 [History] Ferrous Sulfate [Iron (65 MG Elemental)] 325 mg PO DAILY 01/09/21 [History] Gabapentin [Neurontin] 300 mg PO TID 01/09/21 [History] Levothyroxine Sodium 88 mcg PO DAILY 01/09/21 [History] Semaglutide [Ozempic] 1 mg SQ WE 01/09/21 [History] Turmeric Root Extract [Turmeric] 500 mg PO DAILY 01/09/21 [History] Zinc 50 mg PO DAILY 01/09/21 [History] glipiZIDE [Glucotrol XL] 10 mg PO AC-SUPPER 01/09/21 [History] metFORMIN HCL 500 mg PO BID 01/09/21 [History] Vitamin B Complex 1 cap PO DAILY 05/27/21 [History] Cholecalciferol (Vitamin D3) [Vitamin D3 (125 MCG = 5,000 IU)] 125 mcg PO DAILY 11/16/21 [History] Metoprolol Tartrate [Lopressor] 12.5 mg PO DAILY #30 tab 11/17/21 [Rx] hydrOXYzine HCL 25 mg PO Q8HR PRN #30 tab 11/17/21 [Rx] Follow up Appointment(s)/Referral(s): Mumtaz Christianson DO [Primary Care Provider] - 1-2 days Juan Winslow DO [STAFF PHYSICIAN] - 1 Week (office will call PT with appointment ) Patient Instructions/Handouts: *[facility] - After Heart Catheterization - [facility] Instructions Discharge Disposition: HOME SELF-CARE
--- NOTE | 2021-11-18 14:10 | CA ---
Transthoracic Echo Report Name: Jade Washington Age: 51 Gender: F : 1970 Exam Date: 11/16/2021 09:37 Exam Location: [place] [facility] Ht (in): 65 Wt (lb): 183 Ordering Physician: Mumtaz Lu DO Attending/Referring Phys: [id number], Aly Field Operations Manager Sachi Castellon RDCS Procedure CPT: Indications: CP Cardiac Hx: Technical Quality: Fair Contrast 1: Total Dose (mL): Contrast 2: Total Dose (mL): MEASUREMENTS (Male / Female) Normal Values 2D ECHO LV Diastolic Diameter PLAX 5.1 cm 4.2 - 5.9 / 3.9 - 5.3 cm LV Systolic Diameter PLAX 3.7 cm IVS Diastolic Thickness 1.3 cm 0.6 - 1.0 / 0.6 - 0.9 cm LVPW Diastolic Thickness 1.5 cm 0.6 - 1.0 / 0.6 - 0.9 cm LV Relative Wall Thickness 0.5 RV Internal Dim ED PLAX 2.3 cm LA Volume 44.9 cm??? 18 - 58 / 22 - 52 cm??? M-MODE Aortic Root Diameter MM 3.2 cm LA Systolic Diameter MM 3.5 cm LA Ao Ratio MM 1.1 AV Cusp Separation MM 1.8 cm DOPPLER AV Peak Velocity 114.9 cm/s AV Peak Gradient 5.3 mmHg LVOT Peak Velocity 99.0 cm/s LVOT Peak Gradient 3.9 mmHg MV Area PHT 3.5 cm??? Mitral E Point Velocity 55.5 cm/s Mitral A Point Velocity 66.0 cm/s Mitral E to A Ratio 0.8 MV Deceleration Time 218.9 ms FINDINGS Left Ventricle Mildly increased left ventricular wall thickness. Mildly decreased left ventricular systolic function with no obvious regional wall motion abnormalities. Left ventricular ejection fraction is estimated at 40-45 %. Right Ventricle Normal right ventricular size and function. Right Atrium Normal right atrial size. Left Atrium Normal left atrial size. Mitral Valve No evidence for mitral valve prolapse. No mitral stenosis. Trace mitral regurgitation. Aortic Valve No aortic valve stenosis or regurgitation. Tricuspid Valve Structurally normal tricuspid valve. Mild tricuspid regurgitation. Pulmonic Valve Structurally normal pulmonic valve. Pericardium No pericardial effusion. Aorta Normal size aortic root and proximal ascending aorta. CONCLUSIONS Left ventricular ejection fraction 40-45% with global hypokinesis Mild LVH Trace mitral regurgitation Mild tricuspid regurgitation Previewed by: Dr. Juan Winslow DO (Electronically Signed) Final Date: 16 November 2021 12:44
--- NOTE | 2021-11-18 14:11 | CA ---
Lexiscan Nuclear Stress Test Report Name: Jade Washington Exam Date: 11/16/2021 10:32 Exam Location: [place] Stress Ht (in): 65 Wt (lb): 183 BSA: 1.90 Ordering Phys: JAGUAR Referring Phys: JAGUAR,, Technologist: Juan Carlos Esquivel Age: 51 Gender: F : 1970 Procedure CPT: Indications: ICD-10 Codes: Patient History: CHEST PAIN, DIFFICULTY IN BREATHING, HTN, DIABETIC, FAMILY HX OF HEART DISEASE, CURRENT SMOKER (O.5 PPD X 36 YEARS) HX OF AL, CARDIAC CATHETERIZATION WITH STENTING (X3) Medications: Meds past 24 hrs: Pretest Chest Pain: STRESS TEST Lexiscan Protocol Exercise Duration (min:sec): 01:[address] Depressions (mm): Angina Score: Palmer Score: Resting HR (bpm): 60 Peak HR (bpm): 86 Resting BP (mmHg): 129 / 78 Peak BP (mmHg): 133 / 73 MPHR: 170 Target HR: 145 % MPHR: 51 METS: 1.0 Total Dose: Peak Dose: Atropine: Double Product: 58694 BP Response: Stress Termination: INFUSION COMPLETE Stress Symptoms: NO SYMPTOMS Stress Summary: ECG ANALYSIS Resting ECG: Stress ECG: CONCLUSIONS At baseline EKG showed normal sinus rhythm, normal axis, no significant ST or T wave abnormalities. Patient recieved IV infusion of Lexiscan 0.4mg and at peak infusion EKG showed no significant change from baseline. Conclusions: 1. Normal EKG response to Lexiscan infusion 2. Nuclear imaging to be reported separately. Dr. Juan Winslow DO (Electronically Signed) Final Date: 16 November 2021 12:33
--- NOTE | 2021-11-25 08:36 | P.CARDCATH ---
Description of Procedure: PROCEDURES PERFORMED: Left heart catheterization, bilateral coronary angiography INDICATION: Chest pain concerning for unstable angina CONSENT:I have discussed the risks, benefits and alternative therapies for the above-mentioned procedure and for both sedation/analgesia as well as necessary blood product administration, if indicated, as they pertain to this patient. The patient has indicated understanding and acceptance of the risks and procedures discussed. PROCEDURE: After the risks, benefits and alternatives of the above mentioned procedure explained in detail with the patient, informed consent was obtained. Patient was taken to the catheterization lab and prepped and draped in usual fashion. 1% lidocaine was used to anesthetize the right radial artery. A 6- Pashto sheath was placed in the right radial artery using modified Seldinger technique. Left coronary angiography was performed with a 5-Pashto JL 3.5 cath eter and right coronary angiography was performed with a 5-Pashto JR5 catheter in various views. A 5-Pashto FR5 catheter was inserted into the left ventricle and pressure measurements were obtained. The right radial sheath was removed and a TR band was placed with hemostasis achieved. The patient tolerated the procedure well. Patient was transported back to the post catheterization holding area in stable condition. Conscious Sedation: Patient was monitored under the direct supervision of vision of myself for conscious sedation using Versed and fentanyl for a total duration of 14 minutes HEMODYNAMICS: Aorta: 133/78 LV: 125/2, LVEDP 8 SELECTIVE CORONARY ARTERIOGRAPHY: LEFT MAIN: The left main is a large caliber vessel which bifurcates into the LAD and circumflex. There is no significant stenosis. LEFT ANTERIOR DESCENDING CORONARY ARTERY: LAD is a large caliber vessel which wraps around to the apex. There are mild luminal irregularities up to 10% LEFT CIRCUMFLEX CORONARY ARTERY: Left circumflex is a moderate caliber vessel with mild luminal irregularities. RIGHT CORONARY ARTERY: The right coronary artery is a large caliber vessel which gives off a PDA and PLV branch and is the dominant vessel. There are mild luminal irregularities. FINAL IMPRESSION: 1. Relatively normal coronary arteries other than mild luminal irregularities. 2. Normal left sided filling pressures PLAN: 1. Aggressive risk factor modification per most recent ACC/AHA guidelines. 2. Follow-up in the office in 1-2 weeks.
== END 2021-11-17 15:59 | disposition home or self-care (01) ==
LOC: EC 23:24 → 6NMEDSUR 11-16 01:19 → INTOOBSV 11-16 13:35 → OBSVTOIN 11-16 13:35 → 3SCARD 11-16 13:38 → 6NMEDSUR 11-16 15:02 → UNDODISIN 11-17 15:59
PROVIDERS: ADMIT Internal Medicine; ATTEND Internal Medicine
PROC: B2111ZZ Fluoroscopy of Multiple Coronary Arteries using Low Osmolar Contrast (ICD-10-PCS; 2021-11-17)
PROC: 4A023N7 Measurement of Cardiac Sampling and Pressure, Left Heart, Percutaneous Approach (ICD-10-PCS; principal; 2021-11-17 07:30)
DX: R07.89 Other chest pain (principal); I25.10 Atherosclerotic heart disease of native coronary artery without angina pectoris; E11.65 Type 2 diabetes mellitus with hyperglycemia; D72.829 Elevated white blood cell count, unspecified; E03.9 Hypothyroidism, unspecified; E78.5 Hyperlipidemia, unspecified; I07.1 Rheumatic tricuspid insufficiency; N95.1 Menopausal and female climacteric states; F17.210 Nicotine dependence, cigarettes, uncomplicated; I25.2 Old myocardial infarction; Z79.02 Long term (current) use of antithrombotics/antiplatelets; Z79.82 Long term (current) use of aspirin; Z79.84 Long term (current) use of oral hypoglycemic drugs; Z79.890 Hormone replacement therapy; Z79.899 Other long term (current) drug therapy; Z88.1 Allergy status to other antibiotic agents; Z88.5 Allergy status to narcotic agent; Z88.8 Allergy status to other drugs, medicaments and biological substances; Z98.51 Tubal ligation status; Z95.5 Presence of coronary angioplasty implant and graft; Z71.6 Tobacco abuse counseling; Z90.710 Acquired absence of both cervix and uterus; Z98.891 History of uterine scar from previous surgery; Z87.828 Personal history of other (healed) physical injury and trauma; Z98.890 Other specified postprocedural states; Z83.3 Family history of diabetes mellitus; Z80.9 Family history of malignant neoplasm, unspecified
CPT/HCPCS: 99291 ×2; 96366 ×2; 96376; 96365; 96375; 36415; 93005 ×2; 93017; 93306; 93458; 83880; 80061; 80053; 80048; 83735; 84484; 85025; 85610; 85730; 71045; 78452; G0378 ×3; C1769; C1894; A9500; J2250; J2001; J3010; J1644 ×3; J1170; J2785; Q9967; 96374

== ENCOUNTER → 2021-12-15 | Outpatient (CLI) | payer BC | LOC: LABWHC1 14:36 | PROVIDERS: ATTEND Internal Medicine | DX: R07.89 Other chest pain (principal) | CPT/HCPCS: 36415; 85379 ==

== ENCOUNTER 2022-02-14 15:30 | Emergency (ER) | payer BC ==
[2022-02-14 15:39] LABS: Glucose,Whole Blood 594 mg/dL (70-110)
[2022-02-14 15:40] VITALS: RESP 16
[2022-02-14 16:48] LABS: Basophils # (A) 0.1 k/uL (0-0.2); Basophils % (A) 1 %; Eosinophils % (A) 0 %; HCT 48.7 % (34.0-46.0); Lymphocytes # (A) 1.4 k/uL (1.0-4.8); Lymphocytes % (A) 10 %; MCH 31.4 pg (25.0-35.0); MCV 89.9 fL (80.0-100.0); Mean Platelet Volume 7.5; Monocytes # (A) 0.4 k/uL (0-1.0); Monocytes % (A) 3 %; Neutrophils # (A) 12.3 k/uL (1.3-7.7); Neutrophils % (A) 86 %; Platelet Count 386 k/uL (150-450); RBC 5.42 m/uL (3.80-5.40); WBC 14.3 k/uL (3.8-10.6)
[2022-02-14 16:58] LABS: ALT 29 U/L (4-34); AST 21 U/L (14-36); African American GFR (CKD) >90 (>60 ml/min/1.73 sqM); Albumin 4.5 g/dL (3.5-5.0); Alkaline Phosphatase 120 U/L (38-126); Anion Gap 8 mmol/L; Blood Urea Nitrogen 17 mg/dL (7-17); Calcium 10.1 mg/dL (8.4-10.2); Carbon Dioxide 26 mmol/L (22-30); Chloride 97 mmol/L (98-107); Non-African American GFR(CKD) >90 (>60 ml/min/1.73 sqM); Potassium 4.8 mmol/L (3.5-5.1); Sodium 131 mmol/L (137-145); Total Bilirubin 1.3 mg/dL (0.2-1.3); Total Protein 7.8 g/dL (6.3-8.2)
[2022-02-14 16:58] LABS: Appearance,Urine Clear (Clear); Bilirubin,Urine Negative (Negative); Blood,Urine Negative (Negative); Color,Urine Colorless; Glucose,Urine (UA) 4+ (Negative); Ketones,Urine Trace (Negative); Leukocyte Esterase,Urine Negative (Negative); Nitrite,Urine Negative (Negative); PH, Urine 6.5 (5.0-8.0); Protein,Urine Negative (Negative); Specific Gravity,Urine 1.031 (1.001-1.035); Urobilinogen,Urine <2.0 mg/dL (<2.0)
[2022-02-14 17:03] LABS: Glucose 606 mg/dL (74-99)
[2022-02-14] MEDS ORDERED: SODIUM CHLORIDE 0.9% 1,000 ML IV STA ×2 (17:05)
--- NOTE | 2022-02-14 17:08 | ED ---
General Adult HPI - General Chief complaint: Recheck/Abnormal Lab/Rx Stated complaint: hyperglycemia Time Seen by Provider: 02/14/22 16:25 Source: patient, family, RN notes reviewed Limitations: no limitations - History of Present Illness Initial comments: 51-year-old female presents to the emergency department for evaluation of hyperglycemia. Patient states she is currently on a steroid for bronchitis and has had elevated blood sugar the past 2 days. Reports burning glucose was 500. States she has previously taken prednisone but does not usually have blood sugar levels above 400. Symptoms include increased thirst and urinary frequency. States she is currently taking Levaquin for bronchitis. Has been taking her other home medications as prescribed. Saw cardiology this week for routine recheck. Denies fever, chills, shortness of breath, difficulty breathing, chest pain, abdominal pain, nausea, vomiting, diarrhea, or dysuria. - Related Data Home Medications Medication Instructions Recorded Confirmed Ascorbic Acid [Vitamin C] 1,000 mg PO DAILY 01/09/21 02/14/22 Aspirin [Adult Low Dose Aspirin EC] 81 mg PO DAILY 01/09/21 02/14/22 Atorvastatin [Lipitor] 80 mg PO HS 01/09/21 02/14/22 Calcium Carbonate [Calcium] 600 mg PO BID 01/09/21 02/14/22 Cinnamon Bark [Cinnamon] 1,500 mg PO DAILY 01/09/21 02/14/22 Clopidogrel [Plavix] 75 mg PO DAILY 01/09/21 02/14/22 Cyanocobalamin (Vitamin B-12) 1,000 mcg PO DAILY 01/09/21 02/14/22 [Vitamin B-12] Dapagliflozin Propanediol [Farxiga] 10 mg PO DAILY 01/09/21 02/14/22 Ferrous Sulfate [Iron (65 MG 325 mg PO DAILY 01/09/21 02/14/22 Elemental)] Gabapentin [Neurontin] 300 mg PO TID 01/09/21 02/14/22 Levothyroxine Sodium 88 mcg PO MOTUWETHFRSA 01/09/21 02/14/22 Semaglutide [Ozempic] 1 mg SQ WE 01/09/21 02/14/22 Turmeric Root Extract [Turmeric] 500 mg PO DAILY 01/09/21 02/14/22 Zinc 50 mg PO DAILY 01/09/21 02/14/22 glipiZIDE [Glucotrol XL] 10 mg PO AC-SUPPER 01/09/21 02/14/22 metFORMIN HCL 500 mg PO BID 01/09/21 02/14/22 Cholecalciferol (Vitamin D3) 125 mcg PO DAILY 11/16/21 02/14/22 [Vitamin D3 (125 MCG = 5,000 IU)] Albuterol Inhaler [Ventolin Hfa 2 puff INHALATION RT-Q4H PRN 02/14/22 02/14/22 Inhaler] DULoxetine HCL [Cymbalta] 30 mg PO BID 02/14/22 02/14/22 Isosorbide Mononitrate ER [Imdur] 30 mg PO DAILY 02/14/22 02/14/22 Levothyroxine Sodium [Synthroid] 176 mcg PO RUDOPLH 02/14/22 02/14/22 Metoprolol Tartrate [Lopressor] 25 mg PO BID 02/14/22 02/14/22 levoFLOXacin 500 mg PO DAILY 02/14/22 02/14/22 predniSONE See Taper PO DIRECTED 02/14/22 02/14/22 Previous Rx's Medication Instructions Recorded hydrOXYzine HCL 25 mg PO Q8HR PRN #30 tab 11/17/21 Allergies Allergy/AdvReac Type Severity Reaction Status Date / Time erythromycin base Allergy cardiac Verified 11/16/21 07:54 arrest methimazole AdvReac depleated Verified 11/16/21 07:54 white blood cells morphine AdvReac Nausea & Verified 11/16/21 07:54 Vomiting Review of Systems ROS Statement: Those systems with pertinent positive or pertinent negative responses have been documented in the HPI. ROS Other: All systems not noted in ROS Statement are negative. Past Medical History Past Medical History: Coronary Artery Disease (CAD), Diabetes Mellitus, Thyroid Disorder Additional Past Medical History / Comment(s): work injury 2018 -states she has nerve damage and left arm weakness History of Any Multi-Drug Resistant Organisms: None Reported Past Surgical History: Section, Heart Catheterization With Stent, Hysterectomy, Orthopedic Surgery, Tubal Ligation Additional Past Surgical History / Comment(s): left arm surgery times 4 for weakness and nerve damage, carpal tunnel release, radial and second dorsal compartment release, right toe surgery,cubital tunnel release lt arm Past Anesthesia/Blood Transfusion Reactions: No Reported Reaction, Family History of Problems w/ Anesthesia Additional Past Anesthesia/Blood Transfusion Reaction / Comment(s): no previous blood transfusion, mother has had problems with anesthesia-pt does not know details Date of Last Stent Placement:: November 2019 Past Psychological History: No Psychological Hx Reported Smoking Status: Current every day smoker Past Alcohol Use History: None Reported Past Drug Use History: None Reported - Past Family History Mother Family Medical History: Cancer, Diabetes Mellitus General Exam Limitations: no limitations (Developed, well-nourished female in no acute distress.) General appearance: alert, in no apparent distress ENT exam: Present: normal exam, normal oropharynx, mucous membranes moist Respiratory exam: Present: normal lung sounds bilaterally. Absent: respiratory distress, wheezes, rales, rhonchi, stridor, chest wall tenderness, accessory muscle use Cardiovascular Exam: Present: regular rate, normal rhythm, normal heart sounds. Absent: systolic murmur, diastolic murmur, rubs, gallop, clicks GI/Abdominal exam: Present: soft, normal bowel sounds. Absent: distended, tenderness, guarding, rebound, rigid Extremities exam: Present: normal inspection, full ROM, normal capillary refill. Absent: pedal edema Back exam: Absent: CVA tenderness (R), CVA tenderness (L) Neurological exam: Present: alert, oriented X3, CN II-XII intact Psychiatric exam: Present: normal affect, normal mood Course Vital Signs 02/14/22 02/14/22 02/14/22 15:38 19:50 20:37 Temperature 97 F L 97.9 F 97.4 F L Pulse Rate 76 72 70 Respiratory 16 16 16 Rate Blood Pressure 147/80 130/62 133/78 O2 Sat by Pulse 96 96 100 Oximetry - Reevaluation(s) Reevaluation #1: 02/14/22 18:15 Upon reassessment, patient reports feeling improved after IV fluids. Updated on results. Discussed insulin administration with my attending, Dr. Keita. 18 units subcu will be given. Patient is agreeable with this plan of care. 02/14/22 20:20 Patient is resting comfortably at this time. She is ambulatory and comfortable. Accu-Chek 375. Discussed discharged home. Patient verbalizes readiness. We spoke at length about meds and diet. Medical Decision Making - Medical Decision Making 51-year-old female with a past medical history of CAD and diabetes presents to the emergency department for evaluation of elevated blood sugar. Upon exam, patient is well-appearing and in no acute distress. She is noted to have a strong, nonproductive cough; currently being treated for bronchitis and is taking prednisone and Levaquin. Patient complains of polydipsia and polyuria. Laboratory studies were obtained. Leukocytosis (WBC 14.3) could be related to steroid or bronchitis. Patient does appear hemoconcentrated with hemoglobin 17.0, hematocrit 40.7. Mild hyponatremia (Na 131). Hyperglycemia (glucose 606) . Acetone negative. Patient was given 2 L of IV fluids and 18 units of subcu insulin. Subsequent Accu-Cheks were 497 and 375. Patient reports feeling well and verbalizes readiness for discharge. Discussed cessation of steroid as she has nearly completed the taper. Encouraged to continue her home medications as prescribed. Discussed appropriate follow-up care. Return parameters discussed in detail. Patient verbalizes understanding and agrees with this plan. Attending: Bossman. Was pt. sent in by a medical professional or institution? @ -No Did you speak to anyone other than the patient for history? @ -No Did you review nursing and triage notes? @ -Yes, agree Were old charts reviewed? @ -No Differential Diagnosis? @ -Hyperglycemia, viral illness, gastroenteritis, poorly controlled diabetes, this is not meant to be an exhaustive list EKG interpreted by me (3pts min.)? @ -Not applicable X-rays interpreted by me (1pt min.)? @ -Chest x-ray as interpreted by me shows no consolidation or infiltrate CT interpreted by me (1pt min.)? @ -Not applicable U/S interpreted by me (1pt. min.)? @ -Not applicable What testing was considered but not performed? (CT, X-rays, U/S, labs)? Why? @ -None What meds were considered but not given? Why? @ -None Did you discuss the management of the patient with other professionals? @ -None Did you reconcile home meds? @ -Yes Was smoking cessation discussed for >3mins.? @ -No Was critical care preformed (if so, how long)? @ -No Were there social determinants of health that impacted care today? How? (Homelessness, low income, unemployed, alcoholism, drug addiction, transportation, low edu. Level, literacy, decrease access to med. care, custodial, rehab)? @ -No Was there de-escalation of care discussed even if they declined? (Discuss DNR or withdrawal of care, Hospice)? @ -No What co-morbidities impacted this encounter? (DM, HTN, Smoking, COPD, CAD, Cancer, CVA, Hep., AIDS, mental health diagnosis, sleep apnea, morbid obesity)? @ -Diabetes, CAD, bronchitis Was patient admitted / discharged? @ -Discharged Undiagnosed new problem with uncertain prognosis? @ -None Drug Therapy requiring intensive monitoring for toxicity (Heparin, Nitro, Insulin, Cardizem)? @ -None Were any procedures done? @ -None Diagnosis/symptom? @ -Hyperglycemia Acute, or Chronic, or Acute on Chronic? @ -Acute Uncomplicated (without systemic symptoms) or Complicated (systemic symptoms)? @ -Complicated: Polydipsia and polyuria Side effects of treatment? @ -None Exacerbation, Progression, or Severe Exacerbation] @ -No Poses a threat to life or bodily function? @ -Not at this time, though did discuss end-organ damage associated with prolonged uncontrolled hyperglycemia - Lab Data Result diagrams: 02/14/22 16:30 02/14/22 16:36 Lab Results 02/14/22 02/14/22 02/14/22 Range/Units 15:37 16:00 16:30 WBC 14.3 H (3.8-10.6) k/uL RBC 5.42 H (3.80-5.40) m/uL Hgb 17.0 H (11.4-16.0) gm/dL Hct 48.7 H (34.0-46.0) % MCV 89.9 (80.0-100.0) fL MCH 31.4 (25.0-35.0) pg MCHC 35.0 (31.0-37.0) g/dL RDW 12.0 (11.5-15.5) % Plt Count 386 (150-450) k/uL MPV 7.5 Neutrophils % 86 % Lymphocytes % 10 % Monocytes % 3 % Eosinophils % 0 % Basophils % 1 % Neutrophils # 12.3 H (1.3-7.7) k/uL Lymphocytes # 1.4 (1.0-4.8) k/uL Monocytes # 0.4 (0-1.0) k/uL Eosinophils # 0.0 (0-0.7) k/uL Basophils # 0.1 (0-0.2) k/uL Sodium (137-145) mmol/L Potassium (3.5-5.1) mmol/L Chloride (98-107) mmol/L Carbon Dioxide (22-30) mmol/L Anion Gap mmol/L BUN (7-17) mg/dL Creatinine (0.52-1.04) mg/dL Est GFR (CKD-EPI)AfAm (>60 ml/min/1.73 sqM) Est GFR (CKD-EPI)NonAf (>60 ml/min/1.73 sqM) Glucose (74-99) mg/dL POC Glucose (mg/dL) 594 H (70-110) mg/dL POC Glu Accounts Receivable Specialist ID Arnold Monson Calcium (8.4-10.2) mg/dL Total Bilirubin (0.2-1.3) mg/dL AST (14-36) U/L ALT (4-34) U/L Alkaline Phosphatase (38-126) U/L Total Protein (6.3-8.2) g/dL Albumin (3.5-5.0) g/dL Urine Color Colorless Urine Appearance Clear (Clear) Urine pH 6.5 (5.0-8.0) Ur Specific [place] 1.031 (1.001-1.035) Urine Protein Negative (Negative) Urine Glucose (UA) 4+ H (Negative) Urine Ketones Trace H (Negative) Urine Blood Negative (Negative) Urine Nitrite Negative (Negative) Urine Bilirubin Negative (Negative) Urine Urobilinogen <2.0 (<2.0) mg/dL Ur Leukocyte Esterase Negative (Negative) Acetone, Qual (Negative) 02/14/22 02/14/22 02/14/22 Range/Units 16:36 19:31 20:15 WBC (3.8-10.6) k/uL RBC (3.80-5.40) m/uL Hgb (11.4-16.0) gm/dL Hct (34.0-46.0) % MCV (80.0-100.0) fL MCH (25.0-35.0) pg MCHC (31.0-37.0) g/dL RDW (11.5-15.5) % Plt Count (150-450) k/uL MPV Neutrophils % % Lymphocytes % % Monocytes % % Eosinophils % % Basophils % % Neutrophils # (1.3-7.7) k/uL Lymphocytes # (1.0-4.8) k/uL Monocytes # (0-1.0) k/uL Eosinophils # (0-0.7) k/uL Basophils # (0-0.2) k/uL Sodium 131 L (137-145) mmol/L Potassium 4.8 (3.5-5.1) mmol/L Chloride 97 L (98-107) mmol/L Carbon Dioxide 26 (22-30) mmol/L Anion Gap 8 mmol/L BUN 17 (7-17) mg/dL Creatinine 0.66 (0.52-1.04) mg/dL Est GFR (CKD-EPI)AfAm >90 (>60 ml/min/1.73 sqM) Est GFR (CKD-EPI)NonAf >90 (>60 ml/min/1.73 sqM) Glucose 606 H* (74-99) mg/dL POC Glucose (mg/dL) 497 H 375 H (70-110) mg/dL POC Glu Accounts Receivable Specialist ID Jones, Julieta Jones, Julieta Calcium 10.1 (8.4-10.2) mg/dL Total Bilirubin 1.3 (0.2-1.3) mg/dL AST 21 (14-36) U/L ALT 29 (4-34) U/L Alkaline Phosphatase 120 (38-126) U/L Total Protein 7.8 (6.3-8.2) g/dL Albumin 4.5 (3.5-5.0) g/dL Urine Color Urine Appearance (Clear) Urine pH (5.0-8.0) Ur Specific [place] (1.001-1.035) Urine Protein (Negative) Urine Glucose (UA) (Negative) Urine Ketones (Negative) Urine Blood (Negative) Urine Nitrite (Negative) Urine Bilirubin (Negative) Urine Urobilinogen (<2.0) mg/dL Ur Leukocyte Esterase (Negative) Acetone, Qual Negative (Negative) - EKG Data EKG shows normal: sinus rhythm Rate: normal EKG Comments: EKG obtained at 1602 shows sinus rhythm with possible anterior myocardial infarction. Ventricular rate 70, WI interval, QRS duration 90, QT/QTC 374/396. Interpretation abnormal ECG. I see no evidence of acute ischemic change including ST segment elevation or depression. No ectopy. - Radiology Data Radiology results: report reviewed, image reviewed Interpreted by me: Chest x-ray per my interpretation shows no area of consolidation or infiltrate. Two-view chest x-ray was obtained. Report was reviewed in its entirety. Impression per Dr. Kaur is no acute cardiopulmonary disease/process. Disposition Clinical Impression: Hyperglycemia Disposition: HOME SELF-CARE Condition: Stable Instructions (If sedation given, give patient instructions): Diabetic Hyperglycemia (ED) Additional Instructions: Continue your home medications as prescribed. Only exception is to skip night dose of Prednison. Take last dose tomorrow then be done. Increase your intake of water. Eat dinner on her way home tonight. Continue to monitor your blood sugar carefully. Follow-up with your PCP for a recheck. Keep your appointment as scheduled with endocrinology. Return to the emergency department with any new, worsening, or concerning symptoms. Is patient prescribed a controlled substance at d/c from ED?: No Referrals: Mumtaz Christianson DO [Primary Care Provider] - 1-2 days Time of Disposition: 20:38
--- NOTE | 2022-02-14 17:21 | XR ---
EXAMINATION TYPE: XR chest 2V DATE OF EXAM: 02/14/2022 5:16 PM COMPARISON: Chest x-ray 11/15/2021 TECHNIQUE: XR chest 2V . CLINICAL INDICATION:Female, 51 years old with history of cough; FINDINGS: Lungs/Pleura: There is no evidence of pleural effusion, focal consolidation, or pneumothorax. Left b asilar subsegmental atelectasis. Pulmonary vascularity: Unremarkable. Heart/mediastinum: Cardiomediastinal silhouette is unremarkable. Musculoskeletal: Multiple level degenerative disc disease changes seen throughout the spine. Other findings: Spinal cord stimulator leads project over the cervical spine. IMPRESSION: No acute cardiopulmonary disease/process.
[2022-02-14] MEDS ORDERED: INSULIN ASPART (NovoLOG) 100 UNIT/ML VIAL SQ STA (18:15)
[2022-02-14 19:33] LABS: Glucose,Whole Blood 497 mg/dL (70-110)
[2022-02-14 20:17] LABS: Glucose,Whole Blood 375 mg/dL (70-110)
[2022-02-14 20:38] VITALS: BP 133/78; PULSE 70; TEMP 97.4
== END 2022-02-14 20:47 | disposition home or self-care (01) ==
LOC: EC 15:30
DX: R73.9 Hyperglycemia, unspecified (principal); I25.10 Atherosclerotic heart disease of native coronary artery without angina pectoris; E07.9 Disorder of thyroid, unspecified; F17.200 Nicotine dependence, unspecified, uncomplicated; Z79.890 Hormone replacement therapy; Z79.84 Long term (current) use of oral hypoglycemic drugs; Z88.4 Allergy status to anesthetic agent; Z88.8 Allergy status to other drugs, medicaments and biological substances; Z88.5 Allergy status to narcotic agent
CPT/HCPCS: 36415; 71046; 80053; 81003; 82009; 85025; 96360; 96361; 99285

== ENCOUNTER 2022-05-13 02:07 | Emergency (ER) | payer BC ==
[2022-05-13 02:15] VITALS: BP 143/89; PULSE 74; RESP 18; TEMP 97.7
[2022-05-13] MEDS ORDERED: KETOROLAC 15 MG/ML 1 ML VIAL IM STA (02:25)
--- NOTE | 2022-05-13 03:24 | ED ---
Upper Extremity HPI - General Chief Complaint: Extremity Injury, Upper Stated Complaint: R arm and wrist injury Time Seen by Provider: 05/13/22 02:19 Source: patient Mode of arrival: ambulatory - History of Present Illness Initial Comments: Patient is a 52-year-old female presenting with chief complaint of right wrist and forearm pain. She states that earlier this evening her daughter's dog pulled her on its leash. She has been having pain despite home analgesics and ice. No notable deformity or discoloration. She is using a brace for comfort. No numbness or tingling. - Related Data Home Medications Medication Instructions Recorded Confirmed Ascorbic Acid [Vitamin C] 1,000 mg PO DAILY 01/09/21 02/14/22 Aspirin [Adult Low Dose Aspirin EC] 81 mg PO DAILY 01/09/21 02/14/22 Atorvastatin [Lipitor] 80 mg PO HS 01/09/21 02/14/22 Calcium Carbonate [Calcium] 600 mg PO BID 01/09/21 02/14/22 Cinnamon Bark [Cinnamon] 1,500 mg PO DAILY 01/09/21 02/14/22 Clopidogrel [Plavix] 75 mg PO DAILY 01/09/21 02/14/22 Cyanocobalamin (Vitamin B-12) 1,000 mcg PO DAILY 01/09/21 02/14/22 [Vitamin B-12] Dapagliflozin Propanediol [Farxiga] 10 mg PO DAILY 01/09/21 02/14/22 Ferrous Sulfate [Iron (65 MG 325 mg PO DAILY 01/09/21 02/14/22 Elemental)] Gabapentin [Neurontin] 300 mg PO TID 01/09/21 02/14/22 Levothyroxine Sodium 88 mcg PO MOTUWETHFRSA 01/09/21 02/14/22 Semaglutide [Ozempic] 1 mg SQ WE 01/09/21 02/14/22 Turmeric Root Extract [Turmeric] 500 mg PO DAILY 01/09/21 02/14/22 Zinc 50 mg PO DAILY 01/09/21 02/14/22 glipiZIDE [Glucotrol XL] 10 mg PO AC-SUPPER 01/09/21 02/14/22 metFORMIN HCL 500 mg PO BID 01/09/21 02/14/22 Cholecalciferol (Vitamin D3) 125 mcg PO DAILY 11/16/21 02/14/22 [Vitamin D3 (125 MCG = 5,000 IU)] Albuterol Inhaler [Ventolin Hfa 2 puff INHALATION RT-Q4H PRN 02/14/22 02/14/22 Inhaler] DULoxetine HCL [Cymbalta] 30 mg PO BID 02/14/22 02/14/22 Isosorbide Mononitrate ER [Imdur] 30 mg PO DAILY 02/14/22 02/14/22 Levothyroxine Sodium [Synthroid] 176 mcg PO RUDOLPH 02/14/22 02/14/22 Metoprolol Tartrate [Lopressor] 25 mg PO BID 02/14/22 02/14/22 levoFLOXacin 500 mg PO DAILY 02/14/22 02/14/22 predniSONE See Taper PO DIRECTED 02/14/22 02/14/22 Previous Rx's Medication Instructions Recorded hydrOXYzine HCL 25 mg PO Q8HR PRN #30 tab 11/17/21 Allergies Allergy/AdvReac Type Severity Reaction Status Date / Time erythromycin base Allergy cardiac Verified 05/13/22 02:15 arrest methimazole AdvReac depleated Verified 05/13/22 02:15 white blood cells morphine AdvReac Nausea & Verified 05/13/22 02:15 Vomiting Review of Systems ROS Statement: Those systems with pertinent positive or pertinent negative responses have been documented in the HPI. ROS Other: All systems not noted in ROS Statement are negative. Past Medical History Past Medical History: Coronary Artery Disease (CAD), Diabetes Mellitus, Thyroid Disorder Additional Past Medical History / Comment(s): work injury 2018 -states she has nerve damage and left arm weakness History of Any Multi-Drug Resistant Organisms: None Reported Past Surgical History: Section, Heart Catheterization With Stent, Hysterectomy, Orthopedic Surgery, Tubal Ligation Additional Past Surgical History / Comment(s): left arm surgery times 4 for weakness and nerve damage, carpal tunnel release, radial and second dorsal compartment release, right toe surgery,cubital tunnel release lt arm Past Anesthesia/Blood Transfusion Reactions: No Reported Reaction, Family History of Problems w/ Anesthesia Additional Past Anesthesia/Blood Transfusion Reaction / Comment(s): no previous blood transfusion, mother has had problems with anesthesia-pt does not know details Date of Last Stent Placement:: November 2019 Past Psychological History: No Psychological Hx Reported Smoking Status: Current every day smoker Past Alcohol Use History: None Reported Past Drug Use History: None Reported - Past Family History Mother Family Medical History: Cancer, Diabetes Mellitus General Exam Limitations: no limitations General appearance: alert, in no apparent distress Head exam: Present: atraumatic, normocephalic, normal inspection Eye exam: Present: normal appearance Neck exam: Present: normal inspection, full ROM Right Forearm Wrist exam: Present: normal inspection, full ROM, tenderness. Absent: swelling Hand Wrist exam: Present: normal inspection, full ROM, tenderness. Absent: swelling Vascular: Present: radial pulse (2+). Absent: vascular compromise Neurological exam: Present: alert, oriented X3, CN II-XII intact Psychiatric exam: Present: normal affect, normal mood Skin exam: Present: warm, dry, intact, normal color. Absent: rash Course Vital Signs 05/13/22 02:12 Temperature 97.7 F Pulse Rate 74 Respiratory 18 Rate Blood Pressure 143/89 O2 Sat by Pulse 100 Oximetry Medical Decision Making - Medical Decision Making Was pt. sent in by a medical professional or institution (, PA, BACK FILLER OPERATOR, urgent care, hospital, or prison...) When possible be specific @ -No Did you speak to anyone other than the patient for history (EMS, parent, family, police, friend...)? What history was obtained from this source @ -No Did you review nursing and triage notes (agree or disagree)? Why? @ -I reviewed and agree with nursing and triage notes Were old charts reviewed (outside hosp., previous admission, EMS record, old EKG, old radiological studies, urgent care reports/EKG's, prison records)? Report findings @ -No old charts were reviewed Differential Diagnosis (chest pain, altered mental status, abdominal pain women, abdominal pain men, vaginal bleeding, weakness, fever, dyspnea, syncope, headache, dizziness, GI bleed, back pain, seizure, CVA, palpatations, mental health, musculoskeletal)? @ -Differential Musculoskeletal Muscular strain, contusion, ligament sprain, fracture, arthritis, septic arthritis, bursitis, cellulitis, muscle spasm, nerve compression, DVT, arterial occlusion, herpes zoster, electrolyte abnormality, tumor.... This is not meant to be in all inclusive list EKG interpreted by me (3pts min.). @ -As above X-rays interpreted by me (1pt min.). @ -X-rays show no fracture or dislocation CT interpreted by me (1pt min.). @ -None done U/S interpreted by me (1pt. min.). @ -None done What testing was considered but not performed or refused? (CT, X-rays, U/S, labs)? Why? @ -None What meds were considered but not given or refused? Why? @ -None Did you discuss the management of the patient with other professionals (professionals i.e. Dr., PA, BACK FILLER OPERATOR, lab, RT, psych nurse, older adult social work specialist, warehouse logistics manager, teacher, founder and chief executive officer, wrapper caser)? Give summary @ -No Was smoking cessation discussed for >3mins.? @ -No Was critical care preformed (if so, how long)? @ -No Were there social determinants of health that impacted care today? How? (Homelessness, low income, unemployed, alcoholism, drug addiction, transportation, low edu. Level, literacy, decrease access to med. care, snf, rehab)? @ -No Was there de-escalation of care discussed even if they declined (Discuss DNR or withdrawal of care, Hospice)? DNR status @ -No What co-morbidities impacted this encounter? (DM, HTN, Smoking, COPD, CAD, Cancer, CVA, ARF, Chemo, Hep., AIDS, mental health diagnosis, sleep apnea, morbid obesity)? @ -None Was patient admitted / discharged? Hospital course, mention meds given and route, prescriptions, significant lab abnormalities, going to OR and other pertinent info. @ -Patient is a 52-year-old female presenting with chief complaint of right wrist and forearm pain. Patient states that a dog pulled on its leash causing her to strain her hand. On physical examination there is no obvious deformity, neurovascularly intact, some tenderness to palpation. X-rays are negative. Patient is educated on wrist sprain and supportive treatment at home. Follow-up with PCP. Report back to ER with any new or worsening symptoms. Discussed return parameters and answered all questions. Patient conveyed verbal understanding and agreed to the plan. I discussed this case in detail with my attending Dr. [place] Undiagnosed new problem with uncertain prognosis? @ -No Drug Therapy requiring intensive monitoring for toxicity (Heparin, Nitro, Insulin, Cardizem)? @ -No Were any procedures done? @ -No Diagnosis/symptom? @ -Wrist sprain Acute, or Chronic, or Acute on Chronic? @ -Acute Uncomplicated (without systemic symptoms) or Complicated (systemic symptoms)? @ -Uncomplicated Side effects of treatment? @ -No Exacerbation, Progression, or Severe Exacerbation? @ -No Poses a threat to life or bodily function? How? (Chest pain, [place], [place], pneumonia, PE, COPD, DKA, ARF, appy, cholecystitis, CVA, Diverticulitis, Homicidal, Suicidal, threat to staff... and all critical care pts) @ -No Disposition Clinical Impression: Wrist sprain Disposition: HOME SELF-CARE Condition: Good Instructions (If sedation given, give patient instructions): Wrist Injury (ED) Additional Instructions: Follow-up with PCP. Report back to ER with any new or worsening symptoms. Take Motrin and Tylenol stated for pain control. Rest, ice, compress, and elevate the hand. Is patient prescribed a controlled substance at d/c from ED?: No Referrals: Mumtaz Christianson DO [Primary Care Provider] - 1-2 days Time of Disposition: 04:00
--- NOTE | 2022-05-13 03:52 | XR ---
EXAM: XR Right Forearm, 2 Views CLINICAL HISTORY: ITS.REASON XR Reason: injury TECHNIQUE: Frontal and lateral views of the right forearm. COMPARISON: No relevant prior studies available. FINDINGS: Bones/joints: No acute fracture. No dislocation. Soft tissues: Unremarkable. IMPRESSION: Normal right forearm x-rays.
--- NOTE | 2022-05-13 03:53 | XR ---
EXAM: XR Right Hand Complete, 3 or More Views CLINICAL HISTORY: ITS.REASON XR Reason: injury TECHNIQUE: Frontal, lateral and oblique views of the right hand. COMPARISON: No relevant prior studies available. FINDINGS: Bones/joints: No acute fracture. No dislocation. Soft tissues: Unremarkable. No radiopaque foreign body. IMPRESSION: Normal right hand x-rays.
[2022-05-13] MEDS ORDERED: ACET/COD 300 MG/30 MG STARTER PACK 6 TAB BTL PO STA (03:58)
== END 2022-05-13 04:19 | disposition home or self-care (01) ==
LOC: EC 02:07
DX: S63.501A Unspecified sprain of right wrist, initial encounter (principal); I25.10 Atherosclerotic heart disease of native coronary artery without angina pectoris; E11.9 Type 2 diabetes mellitus without complications; E07.9 Disorder of thyroid, unspecified; F17.200 Nicotine dependence, unspecified, uncomplicated; Z88.1 Allergy status to other antibiotic agents; Z88.5 Allergy status to narcotic agent; Z88.8 Allergy status to other drugs, medicaments and biological substances; Z79.82 Long term (current) use of aspirin; Z79.84 Long term (current) use of oral hypoglycemic drugs; Z79.890 Hormone replacement therapy; X58.XXXA Exposure to other specified factors, initial encounter
CPT/HCPCS: 73090; 73130; 99283; 96372; J1885

== ENCOUNTER → 2022-05-20 | Outpatient (CLI) | payer BC ==
--- NOTE | 2022-05-20 12:32 | XR ---
EXAMINATION TYPE: XR lumbar spine 2 or 3V DATE OF EXAM: 05/20/2022 COMPARISON: None HISTORY: Lump on spine TECHNIQUE: 3 view lumbar spine FINDINGS: There are 5 lumbar-type vertebral bodies. The pedicles are intact. Disc heights are preserv ed. Vertebral body heights are preserved. Stimulator is present entering in the T12-L1 level. IMPRESSION: 1. No acute osseous abnormalities lumbar spine
== END | disposition home or self-care (01) ==
LOC: RADXRMAIN 12:03
PROVIDERS: ATTEND Physical Medicine & Rehabilitation
DX: M54.50 Low back pain, unspecified (principal)
CPT/HCPCS: 72100

== ENCOUNTER → 2022-05-20 | Outpatient (CLI) | payer BC ==
[2022-05-20 22:02] LABS: Basophils # (A) 0.11 X 10*3/uL (0.00-0.10); Basophils % (A) 1.1 %; Eosinophils # (A) 0.19 X 10*3/uL (0.04-0.35); Eosinophils % (A) 1.9 %; HCT 45.9 % (37.2-46.3); HGB 15.5 g/dL (12.0-15.0); Immature Grans, Automated 0.5 %; Lymphocytes # (A) 2.97 X 10*3/uL (0.90-5.00); Lymphocytes % (A) 29.4 %; MCH 29.7 pg (27.0-32.0); MCHC 33.8 g/dL (32.0-37.0); MCV 87.9 fL (80.0-97.0); Mean Platelet Volume 8.8 fL (9.5-12.2); Monocytes # (A) 0.68 X 10*3/uL (0.20-1.00); Monocytes % (A) 6.7 %; NRBC Per 100 WBC 0 /100 WBCS (0.0-0.0); Neutrophils % (A) 60.4 %; Platelet Count 340 X 10*3/uL (140-440); RBC 5.22 X 10*6/uL (4.10-5.20)
[2022-05-20 22:54] LABS: Erythrocyte Sedimentation Rate 18 mm/Hr (0-30)
== END | disposition home or self-care (01) ==
LOC: LABWHC1 11:43
PROVIDERS: ATTEND Physical Medicine & Rehabilitation
DX: G06.1 Intraspinal abscess and granuloma (principal)
CPT/HCPCS: 36415; 85025; 85652

== ENCOUNTER → 2022-09-02 | Outpatient (CLI) | payer BC ==
--- NOTE | 2022-09-02 18:07 | XR ---
EXAMINATION TYPE: XR lumbosacral spine 6 views, with flexion and extension DATE OF EXAM: 09/02/2022 Comparison: 05/20/2022 Clinical History: 52-year-old female LUMBAR PAIN Findings: 5 lumbar type vertebral bodies. Generator device projects over the right iliac crest with leads exten ding up the thoracic spine beyond the [id number]. Mild facet arthropathy lower lumbar spine. Align ment is maintained. No dynamic subluxations flexion extension. Mild degenerative disc space narrowing at L5-S1. Vertebral body heights are preserved. Impression: Mild facet arthropathy. Mild degenerative disc disease L5-S1. No vertebral compression collapse or ma lalignment. No dynamic subluxation with flexion-extension.
== END | disposition home or self-care (01) ==
LOC: RADXRMAIN 10:24
PROVIDERS: ATTEND Physical Medicine & Rehabilitation
DX: M47.816 Spondylosis without myelopathy or radiculopathy, lumbar region (principal); M51.37 Other intervertebral disc degeneration, lumbosacral region
CPT/HCPCS: 72110

== ENCOUNTER → 2022-09-02 | Outpatient (CLI) | payer BC ==
[2022-09-02 18:53] LABS: ALT 14 U/L (8-44); AST 17 U/L (13-35); Blood Urea Nitrogen 10.4 mg/dL (9.0-27.0); Carbon Dioxide 26.4 mmol/L (21.6-31.8); Chloride 102 mmol/L (96-109); Chol/HDL Ratio 4.42 Ratio; LDL Cholesterol,Calculated 97.2 mg/dL (0.0-131.0); Potassium 4.1 mmol/L (3.5-5.5); Sodium 140 mmol/L (135-145); T4, Free (Free Thyroxine) 1.15 ng/dL (0.80-1.80)
== END | disposition home or self-care (01) ==
LOC: LABWHC1 10:21
PROVIDERS: ATTEND Internal Medicine
DX: E11.65 Type 2 diabetes mellitus with hyperglycemia (principal); E78.2 Mixed hyperlipidemia; E07.9 Disorder of thyroid, unspecified
CPT/HCPCS: 36415; 80051; 80061; 82043; 82306; 82565; 82570; 84439; 84443; 84450; 84460; 84520

== ENCOUNTER → 2023-08-22 | Outpatient (CLI) | payer BC ==
[2023-08-22 19:16] LABS: Appearance,Urine Clear (Clear); Bilirubin,Urine Negative (Negative); Blood,Urine Negative (Negative); Color,Urine Yellow (Yellow); Ketones,Urine Negative (Negative); Nitrite,Urine Negative (Negative); Specific Gravity,Urine >1.035 (1.001-1.030)
[2023-08-22 19:34] LABS: ALT 28 U/L (8-44); AST 29 U/L (13-35); Albumin 4.6 g/dL (3.8-4.9); Albumin/Globulin Ratio 1.59 Ratio (1.60-3.17); Alkaline Phosphatase 142 U/L (41-126); BUN/Creat Ratio 10.62 Ratio (12.00-20.00); Blood Urea Nitrogen 8.5 mg/dL (9.0-27.0); Calcium 9.8 mg/dL (8.7-10.3); Chloride 99 mmol/L (96-109); Chol/HDL Ratio 8.29 Ratio; Globulin 2.9 g/dL (1.6-3.3); Glucose 376 mg/dL (70-110); LDL Cholesterol,Calculated 124.9 mg/dL (0.0-131.0); Potassium 4.3 mmol/L (3.5-5.5); Sodium 136 mmol/L (135-145); T4, Free (Free Thyroxine) 0.85 ng/dL (0.80-1.80); Total Bilirubin 0.8 mg/dL (0.3-1.2); Total Protein 7.5 g/dL (6.2-8.2)
[2023-08-22 19:51] LABS: Urine Creatinine 63.6 mg/dL (28.0-217.0)
== END | disposition home or self-care (01) ==
LOC: LABWHC1 13:38
PROVIDERS: ATTEND Nurse Practitioner
DX: E11.65 Type 2 diabetes mellitus with hyperglycemia (principal); E55.9 Vitamin D deficiency, unspecified; E78.5 Hyperlipidemia, unspecified; E66.01 Morbid (severe) obesity due to excess calories
CPT/HCPCS: 36415; 80053; 80061; 81003; 82043; 82306; 82570; 83036; 83970; 84439; 84443; 84480

== ENCOUNTER 2023-10-29 21:16 | Inpatient (IN) | payer MEDICARE, BC ==
[2023-10-29] MEDS: NITROGLYCERIN SL TABS 0.4 MG TAB SUBLINGUAL SCH (21:35)
[2023-10-29] MEDS: SODIUM CHLORIDE 0.9% 500 ML 500 ML IV STA (21:36)
--- NOTE | 2023-10-29 21:37 | ED ---
Chest Pain HPI - General Chief Complaint: Chest Pain Stated Complaint: CP Time Seen by Provider: 10/29/23 21:23 Source: patient, EMS Mode of arrival: EMS - History of Present Illness Initial Comments: Pt is a 53-year-old female past medical history CAD, and current smoker presenting today for chest pain. Substernal, began half an hour prior travel while patient was playing on the floor with her grandson. Nonradiating. She did feel nauseous with the pain and had associated chest tightness that has since resolved. No episodes of emesis. States she had similar pain with prior [place]. Saw Dr. Winslow a few months ago and had negative stress test, per patient. At the onset of patient's pain she did take 4 baby aspirin and sublingual nitroglycerin however upon EMS arrival it was noted that patient's sublingual nitroglycerin was . This did not help her pain. Patient was provided with an additional sublingual nitroglycerin by EMS and her pain decreased from an 8 out of 10 to a 7 out of 10. She currently denies any shortness of breath, new numbness, abdominal pain, lightheadedness. Does endorse mild PINA. Recently traveled back from [place] on week ago. Is currently taking clopidigrel. - Related Data Home Medications Medication Instructions Recorded Confirmed Empagliflozin [Jardiance] 25 mg PO DAILY 10/31/23 10/31/23 Insulin Degludec [Tresiba 36 units SQ DAILY 10/31/23 10/31/23 Flextouch U-200 Pen] Insulin Lispro [humaLOG Kwikpen] 10 unit SQ AC-TID 10/31/23 10/31/23 Levothyroxine Sodium [Synthroid] 125 mcg PO DAILY 10/31/23 10/31/23 Nitroglycerin Sl Tabs [Nitrostat] 0.4 mg SUBLINGUAL Q5M PRN 10/31/23 10/31/23 glipiZIDE [Glucotrol] 5 mg PO BID 10/31/23 10/31/23 Previous Rx's Medication Instructions Recorded Aspirin 81 mg PO DAILY 30 Days #30 tab 10/31/23 Atorvastatin [Lipitor] 80 mg PO HS 30 Days #30 tab 10/31/23 Fenofibrate [Lofibra] 54 mg PO DAILY 30 Days #30 tab 10/31/23 Isosorbide Mononitrate ER [Imdur] 30 mg PO DAILY 30 Days #30 tab 10/31/23 Nicotine 21Mg/24Hr Patch [Habitrol] 1 patch TRANSDERM DAILY 30 Days 10/31/23 #30 patch Allergies Allergy/AdvReac Type Severity Reaction Status Date / Time erythromycin base Allergy cardiac Verified 10/29/23 21:23 arrest methimazole AdvReac depleated Verified 10/29/23 21:23 white blood cells morphine AdvReac Nausea & Verified 10/29/23 21:23 Vomiting Review of Systems ROS Statement: Those systems with pertinent positive or pertinent negative responses have been documented in the HPI. ROS Other: All systems not noted in ROS Statement are negative. Constitutional: Denies: fever, chills Respiratory: Reports: cough. Denies: dyspnea Cardiovascular: Reports: chest pain. Denies: dyspnea on exertion, edema Gastrointestinal: Reports: nausea, diarrhea. Denies: abdominal pain, vomiting Neurological: Reports: headache. Denies: numbness, vertigo EKG Findings - EKG Comments: EKG Findings:: EKG interpretation, sinus bradycardia, heart rate 57 bpm, NH interval 180 ms, QRS duration 110 ms, QT/QTc 372/365 ms, left axis deviation, Q waves present in V3, V4, compared to EKG performed on 02/14/2022, Q waves present in V3 and V4 then as well, no significant changes from prior, no ST elevation/no ST elevations or depressions, no arrhythmia Past Medical History Past Medical History: Coronary Artery Disease (CAD), Diabetes Mellitus, Thyroid Disorder Additional Past Medical History / Comment(s): work injury 2018 -states she has nerve damage and left arm weakness History of Any Multi-Drug Resistant Organisms: None Reported Past Surgical History: Section, Heart Catheterization With Stent, Hysterectomy, Orthopedic Surgery, Tubal Ligation Additional Past Surgical History / Comment(s): left arm surgery times 4 for weakness and nerve damage, carpal tunnel release, radial and second dorsal compartment release, right toe surgery,cubital tunnel release lt arm Past Anesthesia/Blood Transfusion Reactions: No Reported Reaction, Family History of Problems w/ Anesthesia Additional Past Anesthesia/Blood Transfusion Reaction / Comment(s): no previous blood transfusion, mother has had problems with anesthesia-pt does not know details Date of Last Stent Placement:: November 2019 Past Psychological History: No Psychological Hx Reported Smoking Status: Current every day smoker Past Alcohol Use History: None Reported Past Drug Use History: None Reported - Past Family History Mother Family Medical History: Cancer, Diabetes Mellitus General Exam - General Exam Comments Initial Comments: PE: CONSTITUTIONAL: No apparent distress, well appearing, somewhat painful appearing SKIN: Warm, dry, no jaundice, hives or petechiae EYES: Pupils are equally round, extraocular movements intact without nystagmus, clear conjunctiva, non-icteric sclera HENT: Normocephalic, atraumatic, moist mucus membranes, oropharynx clear without exudates NECK: , Full range of motion, normal appearance PULMONARY: Clear to auscultation without wheezes, rhonchi, or rales, normal excursion, no accessory muscle use and no stridor CARDIOVASCULAR: Regular rate, rhythm, normal S1 and S2. No appreciated murmurs, rubs or gallops. Strong radial pulses with intact distal perfusion. No lower extremity edema GASTROINTESTINAL: Soft, non-tender, non-distended, no palpable masses, no rebound or guarding. No hepatosplenomegaly GENITOURINARY: MUSCULOSKELETAL: Extremities have no gross deformity, no edema, redness, or swelling. No calf swelling NEUROLOGIC:_a/o x 3, GCS 15, normal mentation and speech. Moves all extremities x 4 without motor or sensory deficit PSYCHIATRIC:_normal mood and affect, thought process is clear and linear Course Vital Signs 10/29/23 10/29/23 10/29/23 21:18 22:00 22:39 Temperature 98.8 F Pulse Rate 63 57 L 51 L Pulse Rate [ Pulse Oximetery ] Respiratory 18 18 18 Rate Blood Pressure 169/83 169/83 121/71 Blood Pressure [Right Arm] O2 Sat by Pulse 96 93 L 98 Oximetry 10/29/23 10/30/23 10/30/23 23:00 00:00 01:00 Temperature Pulse Rate 49 L 45 L 50 L Pulse Rate [ Pulse Oximetery ] Respiratory 18 18 18 Rate Blood Pressure 121/71 133/75 124/74 Blood Pressure [Right Arm] O2 Sat by Pulse 98 98 97 Oximetry 10/30/23 10/30/23 10/30/23 02:00 04:00 06:02 Temperature Pulse Rate 48 L 51 L 62 Pulse Rate [ Pulse Oximetery ] Respiratory 11 L 18 18 Rate Blood Pressure 126/72 129/74 134/82 Blood Pressure [Right Arm] O2 Sat by Pulse 98 97 98 Oximetry 10/30/23 10/30/23 10/30/23 13:00 16:00 16:30 Temperature 97.5 F L Pulse Rate 53 L 49 L Pulse Rate [ 58 L Pulse Oximetery ] Respiratory 16 16 18 Rate Blood Pressure 114/55 106/56 Blood Pressure 125/63 [Right Arm] O2 Sat by Pulse 19 L 98 97 Oximetry Chest Pain MDM - MDM Reviewed cardiac cath report from November 2019, showed relatively normal coronary arteries other than mild luminal irregularities and normal left-sided filling pressures Was pt. sent in by a medical professional or institution (, PA, CAROUSEL OPERATOR, urgent care, hospital, or [facility]...) When possible be specific @ -No Did you speak to anyone other than the patient for history (EMS, parent, family, police, friend...)? What history was obtained from this source @ -Received report from EMS personnel Did you review nursing and triage notes (agree or disagree)? Why? @ -I reviewed and agree with nursing and triage notes Were old charts reviewed (outside hosp., previous admission, EMS record, old EKG, old radiological studies, urgent care reports/EKG's, [facility] records)? Report findings @ -Reviewed cardiac cath report as above and previous EKG Differential Diagnosis (chest pain, altered mental status, abdominal pain women, abdominal pain men, vaginal bleeding, weakness, fever, dyspnea, syncope, headac he, dizziness, GI bleed, back pain, seizure, CVA, palpatations, mental health, musculoskeletal)? @ -Differential Chest Pain: Stable Angina, Unstable Angina, STEMI, NSTEMI Aortic Dissection, pericarditis, pleurisy, chostochondirits, Pneumothorax, Musculoskeletal, Esophageal Spasm GERD, Cholecystitis, Pancreatitis, Zoster, this is not meant to be an all- inclusive list. EKG interpreted by me (3pts min.). @ -As above X-rays interpreted by me (1pt min.). @No cardiomegaly, consolidations or effusions or pneumothorax CT interpreted by me (1pt min.). @ -No pulmonary embolism U/S interpreted by me (1pt. min.). @ -None done What testing was considered but not performed or refused? (CT, X-rays, U/S, labs)? Why? @ -None What meds were considered but not given or refused? Why? @ -Stated morphine however patient endorses severe nausea and vomiting with morphine administration Did you discuss the management of the patient with other professionals (professionals i.e. , SHAMIR, CAROUSEL OPERATOR, lab, RT, psych nurse, social science professor, oil well logger, teacher, canine enforcement officer, upper caser)? Give summary @ -No Was smoking cessation discussed for >3mins.? @ -No Was critical care preformed (if so, how long)? @ -No Were there social determinants of health that impacted care today? How? (Homelessness, low income, unemployed, alcoholism, drug addiction, transportation, low edu. Level, literacy, decrease access to med. care, retirement, rehab)? @ -No Was there de-escalation of care discussed even if they declined (Discuss DNR or withdrawal of care, Hospice)? @ -No What co-morbidities impacted this encounter? (DM, HTN, Smoking, COPD, CAD, Cancer, CVA, ARF, Chemo, Hep., AIDS, mental health diagnosis, sleep apnea, morbid obesity)? @ -, CAD smoking Was patient admitted / discharged? Hospital course, mention meds given and ro [place], prescriptions, significant lab abnormalities, going to OR and other pertinent info. @ -Hospital course Patient is a pleasant 53-year-old female past medical history of CAD, current smoker presenting today for substernal chest pain. Began half an hour prior to arrival. Patient seen and assessed on arrival. Reviewed rhythm strips as provided by EMS, no ST elevation present on these. On my assessment patient is in no acute distress though does appear somewhat painful. Hypertensive, no hypoxia or tachycardia. Exam showed lungs clear to auscultation bilaterally, normal excursion, normal S1-S2 on cardiac exam, no murmurs, soft and nontender abdomen, no lower extremity edema. Plan for ACS workup, it does appear that patient's chest pain improved with nitroglycerin provided by EMS so ordered additional sublingual nitroglycerin. Patient plan of care. She is agreeable with plan On reassessment patient continues to have pain. Ordered repeat EKG. Patient has a allergy to morphine stating it causes severe nausea and vomiting. I offered her Dilaudid with Zofran, she is agreeable to trialing this. Initial troponin less than 0.012. D-dimer 0.65 however using YEARS criteria, PE can be ruled out without further imaging. CXR reviewed, I see no cardiomegaly, consolidations or pleural effusions, read by radiologist as no acute process. Mild leukocytosis with white blood cell count 11.8. Anticipate admission however awaiting repeat EKG and dilaudid adminsiteration to ensure no dynamic changes and improved pain control. Repeat EKG performed and essentially stable from prior, no ST new ischemic changes, sinus bradycardia, heart rate 47, NH interval 193 ms, QRS duration 113, QT/QTc 420/323 ms, left axis deviation Patient endorses improvement in pain with Dilaudid and oxygen administration. Due to patient significant medical history characterization of her pain did begin heparin for NSTEMI. Discussed with THANH Hong, who kindly accepts for admission Patient actually "no doc" patient and needs to be admitted to [facility] physicians. This was amended. Discussed with ANA LILIA Becker with [facility], kindly accepts for admission. Undiagnosed new problem with uncertain prognosis? @ -No Drug Therapy requiring intensive monitoring for toxicity (Heparin, Nitro, Insulin, Cardizem)? @ -Yes, heparin Were any procedures done? @ -No Diagnosis/symptom? @ NSTEMI Acute, or Chronic, or Acute on Chronic? @ ACUTE Uncomplicated (without systemic symptoms) or Complicated (systemic symptoms)? @ -Complicated Side effects of treatment? @ -No Exacerbation, Progression, or Severe Exacerbation? @ -No Poses a threat to life or bodily function? How? (Chest pain, [place], [place], pneumonia, PE, COPD, DKA, ARF, appy, cholecystitis, CVA, Diverticulitis, Homicidal, Suicidal, threat to staff... and all critical care pts) @ -Yes - Wells Criteria Clinical Symptoms of DVT: (0) No No Alternative Diagnosis: (0) No Immobilization of Surgery in Previous 4 Weeks: (1.5) Yes Previous DVT/PE: (0) No Hemoptysis: (0) No Malignancy: (0) No Disposition Clinical Impression: Acute non-ST elevation myocardial infarction (NSTEMI) Disposition: ADMITTED IP TO THIS HOSP Condition: Stable
[2023-10-29 21:44] LABS: Basophils # (A) 0.1 k/uL (0-0.2); Basophils % (A) 1 %; Eosinophils # (A) 0.2 k/uL (0-0.7); Eosinophils % (A) 2 %; HCT 44.3 % (34.0-46.0); HGB 14.7 gm/dL (11.4-16.0); Lymphocytes # (A) 3.2 k/uL (1.0-4.8); Lymphocytes % (A) 28 %; MCH 29.6 pg (25.0-35.0); MCHC 33.1 g/dL (31.0-37.0); MCV 89.4 fL (80.0-100.0); Mean Platelet Volume 6.9; Monocytes # (A) 0.5 k/uL (0-1.0); Monocytes % (A) 4 %; Neutrophils # (A) 7.5 k/uL (1.3-7.7); Neutrophils % (A) 64 %; Platelet Count 331 k/uL (150-450); RBC 4.96 m/uL (3.80-5.40); RDW 12.6 % (11.5-15.5); WBC 11.8 k/uL (3.8-10.6)
[2023-10-29 21:58] LABS: INR 0.9 (<1.2); Partial Thromboplastin Time 23.4 sec (22.0-30.0); Prothrombin Time 10.2 sec (10.0-12.5)
--- NOTE | 2023-10-29 22:07 | XR ---
EXAMINATION TYPE: XR chest 2V DATE OF EXAM: 10/29/2023 COMPARISON: 02/14/2022 INDICATION: Chest pain TECHNIQUE: Frontal and lateral views of the chest are obtained. FINDINGS: The heart size is normal. The pulmonary vasculature is normal. The lungs are clear. Stimulator leads are within the cervical spine IMPRESSION: 1. No acute pulmonary process. [facility], , 10/29/2023 10:04 PM
[2023-10-29 22:18] LABS: ALT 26 U/L (4-34); AST 41 U/L (14-36); African American GFR (CKD) >90 (>60 ml/min/1.73 sqM); Albumin 4.3 g/dL (3.5-5.0); Alkaline Phosphatase 110 U/L (38-126); Anion Gap 5 mmol/L; Blood Urea Nitrogen 11 mg/dL (7-17); Calcium 10.2 mg/dL (8.4-10.2); Carbon Dioxide 24 mmol/L (22-30); Chloride 106 mmol/L (98-107); Glucose 197 mg/dL (74-99); Lipase 145 U/L (23-300); Magnesium 1.7 mg/dL (1.6-2.3); Non-African American GFR(CKD) >90 (>60 ml/min/1.73 sqM); Potassium 4.1 mmol/L (3.5-5.1); Sodium 135 mmol/L (137-145); Total Bilirubin 0.7 mg/dL (0.2-1.3); Total Protein 7.1 g/dL (6.3-8.2)
[2023-10-29 22:27] LABS: NT-Pro-B-Type Natriuretic Pept 40 pg/mL
[2023-10-29] MEDS: ONDANSETRON 4 MG/2 ML VIAL IVP STA (22:42)
[2023-10-29] MEDS: HYDROmorphone 0.5 MG/0.5 ML SYRINGE IVP STA (22:48)
[2023-10-29] MEDS ORDERED: ALPRAZolam 0.25 MG TAB PO PRN (23:17)
[2023-10-29] MEDS ORDERED: NITROGLYCERIN SL TABS 0.4 MG TAB SUBLINGUAL PRN (23:17)
[2023-10-29] MEDS: HEPARIN SODIUM 1,000 UN/ML (10ML VL) IV ONE (23:49)
[2023-10-29] MEDS: HEPARIN SOD,PORK IN 0.45% NACL 25,000 UNIT in 0.45% NACL 1 250ML.BAG IV SCH (23:50)
--- NOTE | 2023-10-29 23:52 | CT ---
EXAMINATION TYPE: CT angio chest DATE OF EXAM: 10/29/2023 COMPARISON: NONE HISTORY: Patient is coming in with complaints of chest pains. elevated d-dimer. iso [address] DLP: 356.2 mGycm. Automated Exposure Control for Dose Reduction was Utilized. CONTRAST: CTA scan of the thorax is performed with IV Contrast, patient injected with 80 mL of Isovue 370, pulm onary embolism protocol. MIP Images are created on CT scanner and reviewed. FINDINGS: LUNGS: Dependent opacity in the bilateral lungs could reflect edema and/or atelectasis. And or focal consolidation. No pleural effusion or pneumothorax. MEDIASTINUM: There is satisfactory enhancement of the pulmonary artery and its branches, there is no CT evidence for pulmonary embolism. Some enhancement of the aorta without aneurysm or dissection. No cardiomegaly or pericardial effusion. Coronary artery stent in the RCA distribution is present OTHER: No additional significant abnormality is seen. IMPRESSION: 1. No CT evidence for acute pulmonary embolism. 2. Mild bilateral dependent edema and/or atelectasis. [facility], , 10/29/2023 11:49 PM
[2023-10-30] MEDS: HYDROmorphone 0.5 MG/0.5 ML SYRINGE IVP PRN (02:00)
[2023-10-30 05:56] LABS: Mean Platelet Volume 6.9; Platelet Count 299 k/uL (150-450)
[2023-10-30] MEDS: HEPARIN SODIUM 1,000 UN/ML (10ML VL) MISCELLANE ONE (07:29)
[2023-10-30] MEDS: ASPIRIN 325 MG TAB PO SCH (07:30)
[2023-10-30] MEDS ORDERED: DEXTROSE 50% SYRINGE 50 ML IVP PRN ×2 (07:49)
[2023-10-30 08:47] LABS: Glucose,Whole Blood 116 mg/dL (70-110)
[2023-10-30] MEDS: ASPIRIN 81 MG PO SCH (08:54)
[2023-10-30] MEDS: DAPAGLIFLOZIN PROPANEDIOL 10 MG TABLET PO SCH (08:54)
[2023-10-30] MEDS: ISOSORBIDE MONONITRATE ER 30 MG TAB.ER.24H PO SCH (08:55)
[2023-10-30] MEDS: LEVOTHYROXINE 88 MCG TAB PO SCH (08:55)
[2023-10-30] MEDS: DULoxetine HCL 30 MG CAPSULE.DR PO SCH (08:55)
[2023-10-30] MEDS: MAG HYDROX/AL HYDROX/SIMETH 30 ML, HYOSCYAMINE ELIXIR 10 ML, LIDOCAINE VISCOUS 2% 10 ML PO ONE (08:56)
--- NOTE | 2023-10-30 09:40 | P.HPIM ---
History of Present Illness H&P Date: 10/30/23 Patient initially admitted under wrong hospitalist team with [facility] on , we were notified of patient's admission undr our services on 10/30/2023 at 7:20 AM. History of Presenting Illness: Patient is a 53-year-old female with a past medical history of CAD status post 2 MIs with stent placed in to RCA on dual antiplatelet therapy with aspirin and Plavix, chronic systolic heart failure with previously known EF of 40 to 45%, hyperlipidemia, hypothyroidism, qxz-qwvbuvr-jluwnbyhq diabetes mellitus, and nicotine dependence. She presented to the emergency department with a chief complaint of chest pain. Patient reports pain began yesterday evening stating she was just sitting on the floor playing with her grandson under no stress or exertion. She reports pain to her left anterior chest initially feeling as tho ugh someone was sitting on it followed by a persistent pressure, nausea, and diaphoresis. She reports the symptoms were very similar to her previous MIs and she immediately took 4 baby aspirin and sublingual nitroglycerin and her called EMS. Denied having any headache, lightheadedness, dizziness, palpitations, shortness of breath, cough or congestion, abdominal pain, or experiencing any numbness/tingling/weakness/swelling in her extremities. Travel to our facility, patient underwent evaluation in the emergency department. Vital signs upon arrival show blood pressure 169/83, heart rate 63, respiratory rate 18, temp 98.8 F, and SpO2 of 96% on room air. In the ER patient was also noted to have bradycardia with heart rate documented as low as 45 bpm. EKG was completed showing sinus bradycardia at 57 bpm. Chest x-ray completed negative for acute cardiopulmonary process. Labs completed and reviewed. CBC showing leukocytosis with WBC count of 11.8 otherwise normal findings. Coagulation profile showing elevated D-dimer of 0.65. BMP unremarkable with exception of mild hyperglycemia with glucose of 197. Magnesium 1.7. Liver profile showing elevated AST of 41 otherwise normal findings. Troponin was negative at less than 0.012 and proBNP was 40. Patient was started on low intensity heparin infusion and admitted under our services with consultation to cardiology. Tr oponins trended overnight all negative at less than 0.012 x 3 draws. Lipid profile showing elevated triglycerides of 283, cholesterol of 240, LDL of 157.9, VLDL of 56.60, and HDL of 25.50. CTA negative for pulmonary emboli showing mild bilateral dependent edema and/or atelectasis. Patient continued with persistent pressure/heaviness to the left anterior chest and was started on low intensity heparin infusion. Patient admitted under services with consultation to cardiology. Review of systems: Pertinent positives and negatives as discussed in HPI, a complete review of systems was performed and all other systems are negative. Physical exam: Vital signs reviewed and stable. General: Nontoxic, no distress and appears stated age. Derm: Skin warm and dry, normal coloration for ethnicity. Head: Atraumatic, normocephalic and symmetric. Eyes: EOM's intact, no lid lag, and anicteric sclera Mouth: no lip lesions, mucus membranes moist Cardiovascular: regular rate and rhythm with normal S1S2, no murmur, positive posterior tibial pulses bilaterally, and cap refill < 2 seconds. Lungs: Respirations even, regular, and unlabored on room air. Lungs CTA bilaterally, no rhonchi, no rales, no wheezing, and no accessory muscle usage. Abdominal: soft, nontender to palpation, no guarding, no appreciable organomegaly Ext: ROM intact. No gross muscle atrophy, no edema, no contractures Neuro: Speech clear, face symmetrical and CN II-XII grossly intact with no noted focal neuro deficits Psych: Alert and oriented to person, place, time, and situation. Appropriate and pleasant affect. Assessment and Plan of Care: Chest pain, rule out acute coronary event Bradycardia History of CAD status post stenting Hyperlipidemia Vrg-sqiiavn-plzsdhrte diabetes mellitus with hyperglycemia Independent -Cardiology consulted, appreciate recommendations -Continue low intensity heparin infusion with goal therapeutic range between 44 and 79 seconds. Currently PTT subtherapeutic at 32.4. -Telemetry monitoring -Troponins negative but chest pain persistent with reports of similar presentation to previous SC. -Cardiac diet, NPO at midnight -Patient started on fenofibrate 54 mg daily and to continue cardiac medication regimen with aspirin 81 mg daily, atorvastatin 80 mg nightly, Plavix 75 mg daily, Farxiga 10 mg daily, and isosorbide mononitrate. -Hold Metoprolol due to bradycardia [facility] -Lipid profile showing elevated triglycerides of 283, cholesterol of 240, LDL of 157.9, VLDL of 56.60, and HDL of 25.50. -Hold glipizide, metformin, and Ozempic and place patient on glycemic protocol with NovoLog sliding scale to maintain tight glycemic control throughout hospitalization. -Order placed for nicotine patch and recommend smoking cessation. Hypothyroidism Continue levothyroxine 88 mcg daily Tuesday through Tuesday and 276 mcg on Tue. Will obtain a TSH with reflex free T4 secondary to patient's bradycardia. Data and imaging reviewed: As stated above in HPI. CODE STATUS: Full code DVT prophylaxis: Low intensity heparin infusion Anticipated discharge date: Pending clinical course Anticipated discharge place: Home Patient was seen independently by Nurse Practitioner. This document was prepared using [employer] dictation software. Please allow for errors in supervisor model making while rare they do occur. . Past Medical History Past Medical History: Coronary Artery Disease (CAD), Diabetes Mellitus, Thyroid Disorder Additional Past Medical History / Comment(s): work injury 2018 -states she has nerve damage and left arm weakness History of Any Multi-Drug Resistant Organisms: None Reported Past Surgical History: Section, Heart Catheterization With Stent, Hysterectomy, Orthopedic Surgery, Tubal Ligation Additional Past Surgical History / Comment(s): left arm surgery times 4 for weakness and nerve damage, carpal tunnel release, radial and second dorsal compartment release, right toe surgery,cubital tunnel release lt arm Past Anesthesia/Blood Transfusion Reactions: No Reported Reaction, Family History of Problems w/ Anesthesia Additional Past Anesthesia/Blood Transfusion Reaction / Comment(s): no previous blood transfusion, mother has had problems with anesthesia-pt does not know details Date of Last Stent Placement:: November 2019 Past Psychological History: No Psychological Hx Reported Smoking Status: Current every day smoker Past Alcohol Use History: None Reported Past Drug Use History: None Reported - Past Family History Mother Family Medical History: Cancer, Diabetes Mellitus Medications and Allergies Home Medications Medication Instructions Recorded Confirmed Type Ascorbic Acid [Vitamin C] 1,000 mg PO DAILY 01/09/21 02/14/22 History Aspirin [Adult Low Dose Aspirin EC] 81 mg PO DAILY 01/09/21 02/14/22 History Atorvastatin [Lipitor] 80 mg PO HS 01/09/21 02/14/22 History Calcium Carbonate [Calcium] 600 mg PO BID 01/09/21 02/14/22 History Cinnamon Bark [Cinnamon] 1,500 mg PO DAILY 01/09/21 02/14/22 History Clopidogrel [Plavix] 75 mg PO DAILY 01/09/21 02/14/22 History Cyanocobalamin (Vitamin B-12) 1,000 mcg PO DAILY 01/09/21 02/14/22 History [Vitamin B-12] Dapagliflozin Propanediol [Farxiga] 10 mg PO DAILY 01/09/21 02/14/22 History Ferrous Sulfate [Iron (65 MG 325 mg PO DAILY 01/09/21 02/14/22 History Elemental)] Gabapentin [Neurontin] 300 mg PO TID 01/09/21 02/14/22 History Levothyroxine Sodium 88 mcg PO MOTUWETHFRSA 01/09/21 02/14/22 History Semaglutide [Ozempic] 1 mg SQ WE 01/09/21 02/14/22 History Turmeric Root Extract [Turmeric] 500 mg PO DAILY 01/09/21 02/14/22 History Zinc 50 mg PO DAILY 01/09/21 02/14/22 History glipiZIDE [Glucotrol XL] 10 mg PO AC-SUPPER 01/09/21 02/14/22 History metFORMIN HCL 500 mg PO BID 01/09/21 02/14/22 History Cholecalciferol (Vitamin D3) 125 mcg PO DAILY 11/16/21 02/14/22 History [Vitamin D3 (125 MCG = 5,000 IU)] hydrOXYzine HCL 25 mg PO Q8HR PRN #30 tab 11/17/21 02/14/22 Rx Albuterol Inhaler [Ventolin Hfa 2 puff INHALATION RT-Q4H PRN 02/14/22 02/14/22 History Inhaler] DULoxetine HCL [Cymbalta] 30 mg PO BID 02/14/22 02/14/22 History Isosorbide Mononitrate ER [Imdur] 30 mg PO DAILY 02/14/22 02/14/22 History Levothyroxine Sodium [Synthroid] 176 mcg PO RUDOLPH 02/14/22 02/14/22 History Metoprolol Tartrate [Lopressor] 25 mg PO BID 02/14/22 02/14/22 History levoFLOXacin 500 mg PO DAILY 02/14/22 02/14/22 History predniSONE See Taper PO DIRECTED 02/14/22 02/14/22 History Allergies Allergy/AdvReac Type Severity Reaction Status Date / Time erythromycin base Allergy cardiac Verified 10/29/23 21:23 arrest methimazole AdvReac depleated Verified 10/29/23 21:23 white blood cells morphine AdvReac Nausea & Verified 10/29/23 21:23 Vomiting Physical Exam Vitals: Vital Signs Temp Pulse Resp BP Pulse Ox 10/30/23 06:02 62 18 134/82 98 10/30/23 04:00 51 L 18 129/74 97 10/30/23 02:00 48 L 11 L 126/72 98 10/30/23 01:00 50 L 18 124/74 97 10/30/23 00:00 45 L 18 133/75 98 10/29/23 23:00 49 L 18 121/71 98 10/29/23 22:39 51 L 18 121/71 98 10/29/23 22:00 57 L 18 169/83 93 L 10/29/23 21:18 98.8 F 63 18 169/83 96 Intake and Output 10/29/23 10/30/23 10/30/23 22:59 06:59 14:59 Intake Total 75.833 Balance 75.833 Intake: Intake, IV Titration 75.833 Amount Heparin Sod,Pork in 0.45% 75.833 NaCl 25,000 unit In 0.45 % NaCl 1 250ml.bag @ 11. 423 UNITS/KG/HR 10 mls/hr IV .Q24H [facility] Rx#: [id number] Other: Weight 87.543 kg Results CBC & Chem 7: 10/30/23 05:38 10/29/23 21:20 Labs: Abnormal Lab Results - Last 24 Hours (Table) 10/29/23 10/29/23 10/29/23 Range/Units 21:20 21:20 21:20 WBC 11.8 H (3.8-10.6) k/uL APTT (22.0-30.0) sec D-Dimer 0.65 H (<0.60) mg/L FEU Sodium 135 L (137-145) mmol/L Glucose 197 H (74-99) mg/dL AST 41 H (14-36) U/L 10/30/23 10/30/23 Range/Units 00:15 05:26 WBC (3.8-10.6) k/uL APTT 79.5 H 32.4 H (22.0-30.0) sec D-Dimer (<0.60) mg/L FEU Sodium (137-145) mmol/L Glucose (74-99) mg/dL AST (14-36) U/L
[2023-10-30] MEDS: CLOPIDOGREL 75 MG TAB PO SCH (10:20)
[2023-10-30 10:54] LABS: Chol/HDL Ratio 9.41 Ratio; LDL Cholesterol,Calculated 157.9 mg/dL (0.0-131.0)
[2023-10-30 12:10] LABS: Glucose,Whole Blood 308 mg/dL (70-110)
[2023-10-30] MEDS ORDERED: NITROGLYCERIN SL TABS 0.4 MG TAB SUBLINGUAL PRN (12:11)
[2023-10-30] MEDS ORDERED: ALPRAZolam 0.5 MG TAB PO PRN (12:11)
[2023-10-30] MEDS ORDERED: ALPRAZolam 0.25 MG TAB PO PRN (12:11)
[2023-10-30] MEDS: INSULIN ASPART (NovoLOG) 100 UNIT/ML VIAL SQ SCH (12:13)
--- NOTE | 2023-10-30 12:14 | P.CRDCN ---
History of Present Illness Consult date: 10/30/23 Consult reason: chest pain History of present illness: This is Christopher Parks NP, I'm dictating on behalf of Dr. Aaron's H&P and A&P The patient was interviewed and examined. HPI: The patient is a pleasant 53-year-old female with a past medical history that includes CAD with stenting in 2019, diabetes, hypothyroidism, who presents to the hospital with complaints of chest pain. She reports that the pain suddenly started while she was playing with her grandson yesterday afternoon. She reports the pain was similar to her prior CA that she had 3 years ago. There was no radiation of the pain. Patient reports that she tried to take a nitroglycerin, but it did not work. EMS presented to the house and gave the patient a different sublingual nitro as they found hers were , and it did bring her pain from 8/10 to 7/10. She was transported to the hospital for evaluation. Since patient's EKG demonstrates a left bundle branch block with bradycardia and some U waves. Troponins have been negative at less than 0.012 x 3. She continues to report pain in the chest, at 3/10 at this time. She otherwise denies heart palpitations, shortness of breath, and dizziness. ROS: [No fever, chills, or rigors] [no cough, phlegm, or expectoration] [no nausea, vomiting, or diarrhea] [no hematuria, dysuria] [no musculoskelatal complaints] [no strokes or seizures] [no skin lesions] EXAMINATION: GENERAL: Well-appearing, well-nourished and in no acute distress. NECK: Supple without JVD or thyromegaly. LUNGS: Breath sounds clear to auscultation bilaterally. Respiration equal and unlabored. No wheezes, rales or rhonchi. HEART: Regular rate and rhythm without murmurs, rubs or gallops. S1 and S2 heard. EXTREMITIES: Normal range of motion, no edema. No clubbing or cyanosis. Peripheral pulses intact and strong. REVIEW OF LABS, ECG & MEDICAL DATA: LABS: White count 11.8, hemoglobin 14.7, platelets 299, D-dimer 0.65, sodium 135, potassium 4.1, BUN 11, creatinine 0.61, magnesium 1.7, troponin less than 0.012 x 3, BNP 40, triglycerides 283, cholesterol 240, LDL 157.9, HDL 25.5, lipase 145. EKG: Left bundle branch block, sinus bradycardia with U waves IMAGING: Chest x-ray dated 10/29/2023 demonstrates no acute pulmonary process. Chest CTA dated 10/29/[address] evidence for acute pulmonary embolism, mild bilateral dependent edema and/or atelectasis. VITALS: Temp 98.8, pulse 62, respirations 18, blood pressure 134/82, O2 saturation 98% on room air IMPRESSION: 1. Chest pain, typical in nature despite lack of EKG evidence of ACS 2. Bradycardia 3. Diabetes 4. Hypothyroidism 5. CAD with stenting in 2019 PLAN: Plan for coronary angiogram tomorrow morning with Dr. Winslow. Continue current medications. Give GI cocktail. Patient n.p.o. at midnight. Further recommendations based on patient's clinical course. Thank you for the consult and allowing us to participate in the care of this pat ient. Past Medical History Past Medical History: Coronary Artery Disease (CAD), Diabetes Mellitus, Thyroid Disorder Additional Past Medical History / Comment(s): work injury 2018 -states she has nerve damage and left arm weakness History of Any Multi-Drug Resistant Organisms: None Reported Past Surgical History: Section, Heart Catheterization With Stent, Hysterectomy, Orthopedic Surgery, Tubal Ligation Additional Past Surgical History / Comment(s): left arm surgery times 4 for weakness and nerve damage, carpal tunnel release, radial and second dorsal compartment release, right toe surgery,cubital tunnel release lt arm Past Anesthesia/Blood Transfusion Reactions: No Reported Reaction, Family Histo ry of Problems w/ Anesthesia Additional Past Anesthesia/Blood Transfusion Reaction / Comment(s): no previous blood transfusion, mother has had problems with anesthesia-pt does not know details Date of Last Stent Placement:: November 2019 Past Psychological History: No Psychological Hx Reported Smoking Status: Current every day smoker Past Alcohol Use History: None Reported Past Drug Use History: None Reported - Past Family History Mother Family Medical History: Cancer, Diabetes Mellitus Medications and Allergies Home Medications Medication Instructions Recorded Confirmed Type Ascorbic Acid [Vitamin C] 1,000 mg PO DAILY 01/09/21 02/14/22 History Aspirin [Adult Low Dose Aspirin EC] 81 mg PO DAILY 01/09/21 02/14/22 History Atorvastatin [Lipitor] 80 mg PO HS 01/09/21 02/14/22 History Calcium Carbonate [Calcium] 600 mg PO BID 01/09/21 02/14/22 History Cinnamon Bark [Cinnamon] 1,500 mg PO DAILY 01/09/21 02/14/22 History Clopidogrel [Plavix] 75 mg PO DAILY 01/09/21 02/14/22 History Cyanocobalamin (Vitamin B-12) 1,000 mcg PO DAILY 01/09/21 02/14/22 History [Vitamin B-12] Dapagliflozin Propanediol [Farxiga] 10 mg PO DAILY 01/09/21 02/14/22 History Ferrous Sulfate [Iron (65 MG 325 mg PO DAILY 01/09/21 02/14/22 History Elemental)] Gabapentin [Neurontin] 300 mg PO TID 01/09/21 02/14/22 History Levothyroxine Sodium 88 mcg PO MOTUWETHFRSA 01/09/21 02/14/22 History Semaglutide [Ozempic] 1 mg SQ WE 01/09/21 02/14/22 History Turmeric Root Extract [Turmeric] 500 mg PO DAILY 01/09/21 02/14/22 History Zinc 50 mg PO DAILY 01/09/21 02/14/22 History glipiZIDE [Glucotrol XL] 10 mg PO AC-SUPPER 01/09/21 02/14/22 History metFORMIN HCL 500 mg PO BID 01/09/21 02/14/22 History Cholecalciferol (Vitamin D3) 125 mcg PO DAILY 11/16/21 02/14/22 History [Vitamin D3 (125 MCG = 5,000 IU)] hydrOXYzine HCL 25 mg PO Q8HR PRN #30 tab 11/17/21 02/14/22 Rx Albuterol Inhaler [Ventolin Hfa 2 puff INHALATION RT-Q4H PRN 02/14/22 02/14/22 History Inhaler] DULoxetine HCL [Cymbalta] 30 mg PO BID 02/14/22 02/14/22 History Isosorbide Mononitrate ER [Imdur] 30 mg PO DAILY 02/14/22 02/14/22 History Levothyroxine Sodium [Synthroid] 176 mcg PO RUDOLPH 02/14/22 02/14/22 History Metoprolol Tartrate [Lopressor] 25 mg PO BID 02/14/22 02/14/22 History levoFLOXacin 500 mg PO DAILY 02/14/22 02/14/22 History predniSONE See Taper PO DIRECTED 02/14/22 02/14/22 History Allergies Allergy/AdvReac Type Severity Reaction Status Date / Time erythromycin base Allergy cardiac Verified 10/29/23 21:23 arrest methimazole AdvReac depleated Verified 10/29/23 21:23 white blood cells morphine AdvReac Nausea & Verified 10/29/23 21:23 Vomiting Physical Exam Vitals: Vital Signs Temp Pulse Resp BP Pulse Ox 10/30/23 06:02 62 18 134/82 98 10/30/23 04:00 51 L 18 129/74 97 10/30/23 02:00 48 L 11 L 126/72 98 10/30/23 01:00 50 L 18 124/74 97 10/30/23 00:00 45 L 18 133/75 98 10/29/23 23:00 49 L 18 121/71 98 10/29/23 22:39 51 L 18 121/71 98 10/29/23 22:00 57 L 18 169/83 93 L 10/29/23 21:18 98.8 F 63 18 169/83 96 Intake and Output 10/29/23 10/30/23 10/30/23 22:59 06:59 14:59 Intake Total 75.833 Balance 75.833 Intake: Intake, IV Titration 75.833 Amount Heparin Sod,Pork in 0.45% 75.833 NaCl 25,000 unit In 0.45 % NaCl 1 250ml.bag @ 11. 423 UNITS/KG/HR 10 mls/hr IV .Q24H [facility] Rx#: [id number] Other: Weight 87.543 kg Results 10/30/23 05:38 10/29/23 21:20 Cardiac Enzymes 10/29/23 10/29/23 10/30/23 Range/Units 21:20 21:20 00:15 AST 41 H (14-36) U/L Troponin I <0.012 <0.012 (0.000-0.034) ng/mL 10/30/23 Range/Units 05:38 AST (14-36) U/L Troponin I <0.012 (0.000-0.034) ng/mL Coagulation 10/29/23 10/30/23 10/30/23 Range/Units 21:20 00:15 05:26 PT 10.2 (10.0-12.5) sec APTT 23.4 79.5 H 32.4 H (22.0-30.0) sec CBC 10/29/23 10/30/23 Range/Units 21:20 05:38 WBC 11.8 H (3.8-10.6) k/uL RBC 4.96 (3.80-5.40) m/uL Hgb 14.7 (11.4-16.0) gm/dL Hct 44.3 (34.0-46.0) % Plt Count 331 299 (150-450) k/uL Comprehensive Metabolic Panel 10/29/23 Range/Units 21:20 Sodium 135 L (137-145) mmol/L Potassium 4.1 (3.5-5.1) mmol/L Chloride 106 (98-107) mmol/L Carbon Dioxide 24 (22-30) mmol/L BUN 11 (7-17) mg/dL Creatinine 0.61 (0.52-1.04) mg/dL Glucose 197 H (74-99) mg/dL Calcium 10.2 (8.4-10.2) mg/dL AST 41 H (14-36) U/L ALT 26 (4-34) U/L Alkaline Phosphatase 110 (38-126) U/L Total Protein 7.1 (6.3-8.2) g/dL Albumin 4.3 (3.5-5.0) g/dL Current Medications Generic Name Dose Route Start Last Admin Trade Name Freq PRN Reason Stop Dose Admin Acetaminophen 650 mg 10/29/23 23:17 Acetaminophen Tab 325 Mg Tab PO Q4HR PRN Pain Alprazolam 0.25 mg 10/29/23 23:17 Alprazolam 0.25 Mg Tab PO QID PRN Anxiety Aspirin 81 mg 10/30/23 09:00 Aspirin 81 Mg PO DAILY [facility] Atorvastatin Calcium 80 mg 10/30/23 21:00 Atorvastatin 80 Mg Tab PO HS YUNI Dapagliflozin 10 mg 10/30/23 09:00 Dapagliflozin Propanediol 10 Mg Tablet PO DAILY [facility] Dextrose/Water 25 ml 10/30/23 07:49 Dextrose 50% Syringe 50 Ml IVP PER PROTOCOL PRN Hypoglycemia Protocol Dextrose/Water 50 ml 10/30/23 07:49 Dextrose 50% Syringe 50 Ml IVP PER PROTOCOL PRN Hypoglycemia Protocol Duloxetine HCl 30 mg 10/30/23 09:00 Duloxetine Hcl 30 Mg Capsule.Dr PO BID [facility] Hydromorphone HCl 0.5 mg 10/30/23 01:26 10/30/23 06:03 Hydromorphone 0.5 Mg/0.5 Ml Syringe IVP 0.5 mg Q4HR PRN Administration Angina Heparin Sodium/Sodium Chloride 250 mls @ 10 mls/hr 10/29/23 23:00 10/30/23 07:25 25,000 unit/ Sodium Chloride IV 14.423 units/kg/hr .Q24H [facility] 12.626 mls/hr Titration Protocol 11.423 UNITS/KG/HR Insulin Aspart 0 unit 10/30/23 12:30 Insulin Aspart (Novolog) 100 Unit/Ml Vial SQ ACHS [facility] Protocol Isosorbide Mononitrate 30 mg 10/30/23 09:00 Isosorbide Mononitrate Er 30 Mg Tab.Er.24h PO DAILY [facility] Levothyroxine Sodium 176 mcg 10/30/23 07:45 Levothyroxine 88 Mcg Tab PO [email or web address] [facility] Levothyroxine Sodium 88 mcg 10/31/23 06:30 Levothyroxine 88 Mcg Tab PO [id number] [facility] Nitroglycerin 0.4 mg 10/29/23 23:17 Nitroglycerin Sl Tabs 0.4 Mg Tab SUBLINGUAL Q5M PRN Chest Pain Intake and Output 10/29/23 10/30/23 10/30/23 22:59 06:59 14:59 Intake Total 75.833 Balance 75.833 Intake: Intake, IV Titration 75.833 Amount Heparin Sod,Pork in 0.45% 75.833 NaCl 25,000 unit In 0.45 % NaCl 1 250ml.bag @ 11. 423 UNITS/KG/HR 10 mls/hr IV .Q24H [facility] Rx#: [id number] Other: Weight 87.543 kg 10/30/23 05:38 10/29/23 21:20
[2023-10-30 12:58] LABS: HCT 41.6 % (34.0-46.0); HGB 13.8 gm/dL (11.4-16.0); MCH 30.2 pg (25.0-35.0); MCHC 33.1 g/dL (31.0-37.0); MCV 91.2 fL (80.0-100.0); Mean Platelet Volume 6.8; Platelet Count 301 k/uL (150-450); RBC 4.56 m/uL (3.80-5.40); RDW 12.9 % (11.5-15.5); WBC 10.2 k/uL (3.8-10.6)
[2023-10-30 13:23] LABS: AST 58 U/L (14-36); African American GFR (CKD) >90 (>60 ml/min/1.73 sqM); Blood Urea Nitrogen 10 mg/dL (7-17); Calcium 9.3 mg/dL (8.4-10.2); Magnesium 1.8 mg/dL (1.6-2.3); Non-African American GFR(CKD) >90 (>60 ml/min/1.73 sqM); Sodium 134 mmol/L (137-145); Total Bilirubin 1.1 mg/dL (0.2-1.3)
[2023-10-30 13:47] LABS: ALT 29 U/L (4-34); Albumin 3.7 g/dL (3.5-5.0); Alkaline Phosphatase 98 U/L (38-126); Anion Gap 4 mmol/L; Carbon Dioxide 24 mmol/L (22-30); Chloride 106 mmol/L (98-107); Glucose 258 mg/dL (74-99); Total Protein 6.2 g/dL (6.3-8.2)
[2023-10-30] MEDS: FENOFIBRATE 54 MG TAB PO SCH (14:28)
[2023-10-30] MEDS: NICOTINE 21MG/24HR PATCH TRANSDERM SCH (14:28)
[2023-10-30 16:56] LABS: Glucose,Whole Blood 122 mg/dL (70-110)
[2023-10-30] MEDS: ACETAMINOPHEN TAB 325 MG TAB PO PRN (18:51)
[2023-10-30 20:30] LABS: Glucose,Whole Blood 305 mg/dL (70-110)
[2023-10-30] MEDS: ATORVASTATIN 80 MG TAB PO SCH (20:32)
[2023-10-31] MEDS: ASPIRIN 325 MG TAB PO ONE (06:05)
[2023-10-31] MEDS: ATORVASTATIN 80 MG TAB PO ONE (06:06)
[2023-10-31] MEDS: LEVOTHYROXINE 88 MCG TAB PO SCH (06:06)
[2023-10-31 06:16] LABS: Glucose,Whole Blood 267 mg/dL (70-110)
[2023-10-31] MEDS ORDERED: LEVOTHYROXINE 88 MCG TAB PO SCH (06:30)
[2023-10-31] MEDS ORDERED: HEPARIN SODIUM,PORCINE 10,000 UNIT in SODIUM CHLORIDE 0.9% 1,000 ML IRRIGATION PRN (07:00)
[2023-10-31] MEDS ORDERED: HEPARIN SODIUM,PORCINE (1 ML) 2,500 UNIT in SODIUM CHLORIDE 0.9% 250 ML IRRIGATION PRN (07:00)
[2023-10-31 07:51] LABS: HCT 43.3 % (34.0-46.0); HGB 14.1 gm/dL (11.4-16.0); MCH 29.2 pg (25.0-35.0); MCHC 32.5 g/dL (31.0-37.0); MCV 89.7 fL (80.0-100.0); Mean Platelet Volume 6.9; Platelet Count 304 k/uL (150-450); RBC 4.83 m/uL (3.80-5.40); RDW 12.6 % (11.5-15.5); WBC 7.7 k/uL (3.8-10.6)
[2023-10-31 08:08] VITALS: RESP 16
[2023-10-31 10:08] LABS: ALT 34 U/L (4-34); AST 52 U/L (14-36); African American GFR (CKD) >90 (>60 ml/min/1.73 sqM); Albumin 3.6 g/dL (3.5-5.0); Alkaline Phosphatase 107 U/L (38-126); Anion Gap 4 mmol/L; Blood Urea Nitrogen 8 mg/dL (7-17); Calcium 9.3 mg/dL (8.4-10.2); Carbon Dioxide 25 mmol/L (22-30); Chloride 109 mmol/L (98-107); Glucose 198 mg/dL (74-99); Magnesium 1.8 mg/dL (1.6-2.3); Non-African American GFR(CKD) >90 (>60 ml/min/1.73 sqM); Sodium 138 mmol/L (137-145); Total Bilirubin 0.9 mg/dL (0.2-1.3); Total Protein 6.4 g/dL (6.3-8.2)
[2023-10-31] MEDS: SODIUM CHLORIDE 0.9% 1,000 ML IV SCH (10:21)
[2023-10-31 11:41] LABS: Glucose,Whole Blood 145 mg/dL (70-110)
[2023-10-31] MEDS: MIDAZOLAM 2 MG/2 ML VIAL IVP ONE (12:18)
[2023-10-31] MEDS: SODIUM CHLORIDE 0.9% 1,000 ML IV ONE (12:19)
[2023-10-31] MEDS: fentaNYL (PF) 50 MCG/ML 2 ML AMP IVP ONE (12:19)
[2023-10-31] MEDS: HEPARIN SODIUM,PORCINE 10,000 UNIT in SODIUM CHLORIDE 0.9% 1,000 ML IRRIGATION ONE (12:19)
[2023-10-31] MEDS: HEPARIN SODIUM,PORCINE (1 ML) 2,500 UNIT in SODIUM CHLORIDE 0.9% 250 ML IRRIGATION ONE (12:23)
[2023-10-31] MEDS: LIDOCAINE 1% INJ 10MG/ML (20 ML MDV) SQ ONE (12:23)
[2023-10-31] MEDS: VERAPAMIL SYRINGE (5 MG/10 ML) INTRAARTER ONE (12:25)
[2023-10-31] MEDS: HEPARIN SODIUM 1,000 UN/ML (10ML VL) IVP ONE (12:26)
[2023-10-31] MEDS: IOPAMIDOL-370 200ML BTL INJ ONE (12:50)
[2023-10-31] MEDS: ADENOSINE 90 MG in SODIUM CHLORIDE 0.9% 60 ML IVP ONE (12:51)
[2023-10-31 14:31] VITALS: TEMP 98.1
--- NOTE | 2023-10-31 14:53 | P.CARDCATH ---
Description of Procedure: PROCEDURES PERFORMED: Left heart catheterization, bilateral coronary angiography, ultrasound guided arterial access, iFR/FFR/CMR of LAD INDICATION: Unstable angina CONSENT:I have discussed the risks, benefits and alternative therapies for the above-mentioned procedure and for both sedation/analgesia as well as necessary blood product administration, if indicated, as they pertain to this patient. The patient has indicated understanding and acceptance of the risks and procedures discussed. PROCEDURE: After the risks, benefits and alternatives of the above mentioned procedure explained in detail with the patient, informed consent was obtained. Patient was taken to the catheterization lab and prepped and draped in usual fashion. Ultrasound guidance was used to assess for arterial access. 1% lidocaine was used to anesthetize the right radial artery. A 6-Swazi sheath was placed in the right radial artery using modified Seldinger technique and ultrasound guidance. Left coronary angiography was performed with a 5-Swazi JL 3.5 catheter and right coronary angiography was performed with a 5-Swazi FR5 catheter in various views. A 5-Swazi FR5 catheter was inserted into the left ventricle and pressure measurements were obtained. The decision was made to perform iFR of the LAD. A 6Fr CLS 3.5 guide was used to engage the left main. Heparin was given. the 0.014 pressure wire was advanced into the proximal left main and normalized. He was then advanced 1 cm distal to the LAD lesion. RFR (iFR) was performed which showed normal at 0.96. Next FFR was performed which was normal at 0.88 with CFR 4.1 and IMR 10 which were both normal. The right radial sheath was removed and a TR band was placed with hemostasis achieved. The patient tolerated the procedure well. Patient was transported back to the post catheterization holding area in stable condition. Conscious Sedation: Patient was monitored under the direct supervision of myself for conscious sedation using Versed and fentanyl for a total duration of 26 minutes HEMODYNAMICS: aorta:/72 LV: 126/10, LVEDP 22 SELECTIVE CORONARY ARTERIOGRAPHY: LEFT MAIN: The left main is a large caliber vessel which bifurcates into the LAD and circumflex. There is no significant stenosis. LEFT ANTERIOR DESCENDING CORONARY ARTERY: LAD is a large caliber vessel which wraps around to the apex. There is a tortuous proximal LAD segment with a 50- 60% stenosis just after the first septal supervisor pullet farm and otherwise mild 20-30% stenosis.. LEFT CIRCUMFLEX CORONARY ARTERY: Left circumflex is a moderate caliber vessel with mild luminal irregularities. This gives off a high OM 1 branch with mild luminal irregularities.. RIGHT CORONARY ARTERY: The right coronary artery is a large caliber vessel which gives off a PDA and PLV branch and is the dominant vessel. There is a proximal to mid RCA stent which is patent with mild 10- 20% percent stenosis. Otherwise there are mild tender 20% stenoses of the mid and distal RCA. FINAL IMPRESSION: 1. CAD as described above including 50-60% proximal LAD, 10-20% RCA, patent proximal to mid RCA stent 2. Elevated left sided filling pressures 3. Normal iFR, FFR, CFR, IMR PLAN: 1. Aggressive risk factor modification per most recent ACC/AHA guidelines. 2. Follow-up in the office in 1-2 weeks.
[2023-10-31 16:37] LABS: Glucose,Whole Blood 129 mg/dL (70-110)
--- NOTE | 2023-10-31 17:04 | P.DS ---
Providers Date of admission: 10/29/23 23:19 Expected date of discharge: 10/31/23 Attending physician: Madhavi Martínez DO Consults: 10/29/23 23:17 Consult Physician Urgent Consulting Provider: Juan Winslow Consult Reason/Comments: NSTEMI Do you want consulting provider notified?: Yes, Notify in am Primary care physician: Physician Nonstaff Hospital Course: Discharge Diagnosis: Chest pain, acute coronary event ruled out. Pt previously on extensive cardiac medication regimen however has not had prescriptions filled in greater than 180 days. Discussed in detail with silk trimmer. Patient discharged home on cardiac medication regimen with aspirin 81 mg daily, atorvastatin 80 mg nightly, fenofibrate 54 mg daily, and isosorbide mononitrate 30 mg daily. Bradycardia History of CAD status post stenting Hyperlipidemia. Lipid profile showing elevated triglycerides of 283, cholesterol of 240, LDL of 157.9, VLDL of 56.60, and HDL of 25.50. Patient discharged on atorvastatin 80 mg daily and fenofibrate 54 mg daily. [id number] diabetes mellitus with hyperglycemia. Patient to resume Tresiba 36 units daily, lispro 10 units 3 times daily, glipizide, and Jardiance. Hypothyroidism. Continue levothyroxine 88 mcg daily Tuesday through Tuesday and 276 mcg on Sundays. Hospital Course: Patient is a 53-year-old female with a past medical history of CAD status post 2 MIs with stent placed in to RCA on dual antiplatelet therapy with aspirin and Plavix, chronic systolic heart failure with previously known EF of 40 to 45%, hyperlipidemia, hypothyroidism, noj-qnskjco-tqcbdpuba diabetes mellitus, and nicotine dependence. She presented to the emergency department with a chief complaint of chest pain. Patient reports pain began yesterday evening stating she was just sitting on the floor playing with her grandson under no stress or exertion. She reports pain to her left anterior chest initially feeling as though someone was sitting on it followed by a persistent pressure, nausea, and diaphoresis. She reports the symptoms were very similar to her previous MIs and she immediately took 4 baby aspirin and sublingual nitroglycerin and her called EMS. Denied having any headache, lightheadedness, dizziness, palpitations, shortness of breath, cough or congestion, abdominal pain, or ex periencing any numbness/tingling/weakness/swelling in her extremities. Travel to our facility, patient underwent evaluation in the emergency department. Vital signs upon arrival show blood pressure 169/83, heart rate 63, respiratory rate 18, temp 98.8 F, and SpO2 of 96% on room air. In the ER patient was also noted to have bradycardia with heart rate documented as low as 45 bpm. EKG was completed showing sinus bradycardia at 57 bpm. Chest x-ray completed negative for acute cardiopulmonary process. Labs completed and reviewed. CBC showing leukocytosis with WBC count of 11.8 otherwise normal findings. Coagulation profile showing elevated D-dimer of 0.65. BMP unremarkable with exception of mild hyperglycemia with glucose of 197. Magnesium 1.7. Liver profile showing elevated AST of 41 otherwise normal findings. Troponin was negative at less than 0.012 and proBNP was 40. Patient was started on low intensity heparin infusion and admitted under our services with consultation to cardiology. Troponins trended overnight all negative at less than 0.012 x 3 draws. Lipid profile showing elevated triglycerides of 283, cholesterol of 240, LDL of 157.9, VLDL of 56.60, and HDL of 25.50. CTA negative for pulmonary emboli showing mild bilateral dependent edema and/or atelectasis. Patient continued with persistent pressure/heaviness to the left anterior chest and was started on low intensity heparin infusion. Patient admitted under services with consultation to cardiology. She was taken for a cardiac catheterization with Dr. Winslow. Cardiac cath revealing 50-60% proximal LAD stenosis, 10 to 20% RCA stenosis, and patent proximal to mid RCA stent. Cardiology recommending aggressive risk factor modification and outpatient follow-up in their office in 1 week. Medically, patient stable for discharge at this time. On further medication reconciliation and review it appears patient has not had any of her cardiac medications were refilled and greater than 180 days. Discussed in detail with silk trimmer. Will discontinue Plavix and discharge patient home on cardiac medication regimen with aspirin 81 mg daily, atorvastatin 80 mg nightly, fenofibrate 54 mg daily, and isosorbide mononitrate 30 mg daily. Patient encouraged to follow a heart healthy and carb consistent diet and to follow-up and establish care with PCP at residency clinic in 1 to 2 days and with ca rdiologist in 1 to 2 weeks. Recommend smoking cessation. Physical exam: Vital signs reviewed and stable. General: Nontoxic, no distress and appears stated age. Derm: Skin warm and dry, normal coloration for ethnicity. Head: Atraumatic, normocephalic and symmetric. Eyes: EOM's intact, no lid lag, and anicteric sclera Mouth: no lip lesions, mucus membranes moist Cardiovascular: regular rate and rhythm with normal S1S2, no murmur, positive posterior tibial pulses bilaterally, and cap refill < 2 seconds. Lungs: Respirations even, regular, and unlabored on room air. Lungs CTA bilaterally, no rhonchi, no rales, no wheezing, and no accessory muscle usage. Abdominal: soft, nontender to palpation, no guarding, no appreciable organomegaly Ext: ROM intact. No gross muscle atrophy, no edema, no contractures Neuro: Speech clear, face symmetrical and CN II-XII grossly intact with no noted focal neuro deficits Psych: Alert and oriented to person, place, time, and situation. Appropriate and pleasant affect. A total of 35 minutes of time were spent preparing this complex discharge summary. Pt was discharged on 10/31/2023 at 4:54 PM. Patient was seen independently by Nurse Practitioner. This document was prepared using [employer] dictation software. Please allow for errors in applications systems engineer while rare they do occur. I reviewed the documentation as provided by the ELLE above, who is the original author of this note. I agree with the documented assessment and plan, with the following changes: none Patient Condition at Discharge: Stable Plan - Discharge Summary Discharge Rx Participant: Yes New Discharge Prescriptions: New Aspirin 81 mg PO DAILY 30 Days #30 tab Atorvastatin [Lipitor] 80 mg PO HS 30 Days #30 tab Nicotine 21Mg/24Hr Patch [Habitrol] 1 patch TRANSDERM DAILY 30 Days #30 patch Isosorbide Mononitrate ER [Imdur] 30 mg PO DAILY 30 Days #30 tab Fenofibrate [Lofibra] 54 mg PO DAILY 30 Days #30 tab Continue Insulin Lispro [humaLOG Kwikpen] 10 unit SQ AC-TID Levothyroxine Sodium [Synthroid] 125 mcg PO DAILY Insulin Degludec [Tresiba Flextouch U-200 Pen] 36 units SQ DAILY Nitroglycerin Sl Tabs [Nitrostat] 0.4 mg SUBLINGUAL Q5M PRN PRN Reason: Chest Pain glipiZIDE [Glucotrol] 5 mg PO BID Empagliflozin [Jardiance] 25 mg PO DAILY Discharge Medication List Aspirin 81 mg PO DAILY 30 Days #30 tab 10/31/23 [Rx] Atorvastatin [Lipitor] 80 mg PO HS 30 Days #30 tab 10/31/23 [Rx] Empagliflozin [Jardiance] 25 mg PO DAILY 10/31/23 [History] Fenofibrate [Lofibra] 54 mg PO DAILY 30 Days #30 tab 10/31/23 [Rx] Insulin Degludec [Tresiba Flextouch U-200 Pen] 36 units SQ DAILY 10/31/23 [History] Insulin Lispro [humaLOG Kwikpen] 10 unit SQ AC-TID 10/31/23 [History] Isosorbide Mononitrate ER [Imdur] 30 mg PO DAILY 30 Days #30 tab 10/31/23 [Rx] Levothyroxine Sodium [Synthroid] 125 mcg PO DAILY 10/31/23 [History] Nicotine 21Mg/24Hr Patch [Habitrol] 1 patch TRANSDERM DAILY 30 Days #30 patch 10/31/23 [Rx] Nitroglycerin Sl Tabs [Nitrostat] 0.4 mg SUBLINGUAL Q5M PRN 10/31/23 [History] glipiZIDE [Glucotrol] 5 mg PO BID 10/31/23 [History] Follow up Appointment(s)/Referral(s): Juan Winslow DO [STAFF PHYSICIAN] - 1 Week (Office closed at time of discharge. Please call office for appointment.) Leonor Montero MD [REFERRING] - 1-2 Days (PLEASE CALL OFFICE PRIOR TO DISCHARGE AND SCHEDULE FIRST AVAILABLE APPOINTMENT FOR FOLLOW UP AT [facility]) Patient Instructions/Handouts: Chest Pain (DC), Left Heart Catheterization (DC) Activity/Diet/Wound Care/Special Instructions: Activity: As tolerated. Take breaks as needed. Diet: Heart healthy and carb consistent diet. Avoid salts, or foods with hidden salts such as canned or boxed foods and frozen dinners. Extra salt makes your heart work harder and traps the fluid in your body for longer. Hemoglobin A1c was elevated at 11.7%, strongly recommend monitoring intake of carbohydrates and avoiding processed foods, flour and sugar. Special Instructions: Take all of your medications as directed and remember to keep all of your doctor's appointments and follow-up as needed. Thank you for allowing us to participate in your care, it was truly a pleasure having you for our patient!!! Discharge Disposition: HOME SELF-CARE
[2023-10-31 17:14] VITALS: BP 127/73; PULSE 50
== END 2023-10-31 18:37 | disposition home or self-care (01) | DRG 287 ==
LOC: EC 21:16 → 3SCARD 23:19
PROVIDERS: ADMIT Internal Medicine; ATTEND Internal Medicine
PROC: 4A033BC Measurement of Arterial Pressure, Coronary, Percutaneous Approach (ICD-10-PCS; principal; 2023-10-31 11:55)
PROC: B2111ZZ Fluoroscopy of Multiple Coronary Arteries using Low Osmolar Contrast (ICD-10-PCS; principal; 2023-10-31 11:55)
PROC: 4A023N7 Measurement of Cardiac Sampling and Pressure, Left Heart, Percutaneous Approach (ICD-10-PCS; principal; 2023-10-31 11:55)
DX: I25.110 Atherosclerotic heart disease of native coronary artery with unstable angina pectoris (principal); I50.22 Chronic systolic (congestive) heart failure; I11.0 Hypertensive heart disease with heart failure; E11.65 Type 2 diabetes mellitus with hyperglycemia; Z79.4 Long term (current) use of insulin; E03.9 Hypothyroidism, unspecified; E78.1 Pure hyperglyceridemia; F17.210 Nicotine dependence, cigarettes, uncomplicated; R00.1 Bradycardia, unspecified; D72.829 Elevated white blood cell count, unspecified; I44.7 Left bundle-branch block, unspecified; Z79.02 Long term (current) use of antithrombotics/antiplatelets; Z95.5 Presence of coronary angioplasty implant and graft; I25.2 Old myocardial infarction; Z79.84 Long term (current) use of oral hypoglycemic drugs; Z79.890 Hormone replacement therapy; Z79.82 Long term (current) use of aspirin; Z79.899 Other long term (current) drug therapy; Z88.5 Allergy status to narcotic agent
CPT/HCPCS: 36415; 71046; 71275; 80053; 80061; 83036; 83690; 83735; 83880; 84439; 84443; 84484; 85025; 85027; 85049; 85379; 85610; 85730; 93005; 93458; 93571; 96365; 96366; 96375; 99285

== ENCOUNTER 2024-08-01 06:20 | Emergency (ER) | payer MEDICARE ==
[2024-08-01 07:09] LABS: Appearance,Urine Turbid (Clear); Bilirubin,Urine Negative (Negative); Blood,Urine Large (Negative); Color,Urine Yellow; Glucose,Urine (UA) 3+ (Negative); Ketones,Urine Negative (Negative); Leukocyte Esterase,Urine Large (Negative); Mucus,Urine Moderate /hpf; Nitrite,Urine Negative (Negative); PH, Urine 5.5 (5.0-8.0); Protein,Urine 2+ (Negative); RBC,Urine >182 /hpf (0-5); Specific Gravity,Urine 1.019 (1.001-1.035); Urobilinogen,Urine <2.0 mg/dL (<2.0); WBC,Urine >182 /hpf (0-5)
--- NOTE | 2024-08-01 07:38 | ED ---
Female Urogenital HPI - General Chief complaint: Urogenital Stated complaint: Back pain, painful urination Time Seen by Provider: 08/01/24 06:32 Source: patient, RN notes reviewed Mode of arrival: ambulatory Limitations: no limitations - History of Present Illness Initial comments: 54-year-old female presents emergency department complaint of right flank pain, dysuria. Patient states that she initially had right flank pain which she thought was from coughing from recent upper respiratory infection. Patient states pain wraps around but states she has had worsening pain that nothing makes it feel better or worse she does have urinary symptoms including frequency and dysuria but denies fevers or chills no nausea vomiting no history of stones no history of gallbladder issues no fevers or chills no chest pain. - Related Data Home Medications Medication Instructions Recorded Confirmed Empagliflozin [Jardiance] 25 mg PO DAILY 10/31/23 10/31/23 Insulin Degludec [Tresiba 36 units SQ DAILY 10/31/23 10/31/23 Flextouch U-200 Pen] Insulin Lispro [humaLOG Kwikpen] 10 unit SQ AC-TID 10/31/23 10/31/23 Levothyroxine Sodium [Synthroid] 125 mcg PO DAILY 10/31/23 10/31/23 Nitroglycerin Sl Tabs [Nitrostat] 0.4 mg SUBLINGUAL Q5M PRN 10/31/23 10/31/23 glipiZIDE [Glucotrol] 5 mg PO BID 10/31/23 10/31/23 Previous Rx's Medication Instructions Recorded Aspirin 81 mg PO DAILY 30 Days #30 tab 10/31/23 Atorvastatin [Lipitor] 80 mg PO HS 30 Days #30 tab 10/31/23 Fenofibrate [Lofibra] 54 mg PO DAILY 30 Days #30 tab 10/31/23 Isosorbide Mononitrate ER [Imdur] 30 mg PO DAILY 30 Days #30 tab 10/31/23 Nicotine 21Mg/24Hr Patch [Habitrol] 1 patch TRANSDERM DAILY 30 Days 10/31/23 #30 patch Cephalexin [Keflex] 500 mg PO Q8HR #30 cap 08/01/24 Allergies Allergy/AdvReac Type Severity Reaction Status Date / Time erythromycin base Allergy cardiac Verified 08/01/24 06:40 arrest methimazole AdvReac depleated Verified 08/01/24 06:40 white blood cells morphine AdvReac Nausea & Verified 08/01/24 06:40 Vomiting Review of Systems ROS Statement: Those systems with pertinent positive or pertinent negative responses have been documented in the HPI. ROS Other: All systems not noted in ROS Statement are negative. Past Medical History Past Medical History: Coronary Artery Disease (CAD), Diabetes Mellitus, Thyroid Disorder Additional Past Medical History / Comment(s): work injury 2018 -states she has nerve damage and left arm weakness History of Any Multi-Drug Resistant Organisms: None Reported Past Surgical History: Section, Heart Catheterization With Stent, Hysterectomy, Orthopedic Surgery, Tubal Ligation Additional Past Surgical History / Comment(s): left arm surgery times 4 for weakness and nerve damage, carpal tunnel release, radial and second dorsal compartment release, right toe surgery,cubital tunnel release lt arm Past Anesthesia/Blood Transfusion Reactions: No Reported Reaction, Family History of Problems w/ Anesthesia Additional Past Anesthesia/Blood Transfusion Reaction / Comment(s): no previous blood transfusion, mother has had problems with anesthesia-pt does not know details Date of Last Stent Placement:: November 2019 Past Psychological History: No Psychological Hx Reported Smoking Status: Current every day smoker Past Alcohol Use History: None Reported Past Drug Use History: None Reported - Past Family History Mother Family Medical History: Cancer, Diabetes Mellitus General Exam Limitations: no limitations General appearance: alert, in no apparent distress Head exam: Present: atraumatic, normocephalic, normal inspection Eye exam: Present: normal appearance, PERRL, EOMI. Absent: scleral icterus, conjunctival injection, periorbital swelling ENT exam: Present: normal exam, normal oropharynx, mucous membranes moist Neck exam: Present: normal inspection, full ROM. Absent: tenderness, meningismus, lymphadenopathy Respiratory exam: Present: normal lung sounds bilaterally. Absent: respiratory distress, wheezes, rales, rhonchi, stridor Cardiovascular Exam: Present: regular rate, normal rhythm, normal heart sounds. Absent: systolic murmur, diastolic murmur, rubs, gallop, clicks GI/Abdominal exam: Present: soft, normal bowel sounds. Absent: distended, tenderness, guarding, rebound, rigid Back exam: Present: CVA tenderness (R). Absent: CVA tenderness (L) Neurological exam: Present: alert, oriented X3 Course Vital Signs 08/01/24 08/01/2425 06:40 07:53 08:38 Temperature 97.7 F 97.6 F Pulse Rate 71 60 51 L Respiratory 18 16 18 Rate Blood Pressure 152/83 113/76 O2 Sat by Pulse 97 96 98 Oximetry Medical Decision Making - Medical Decision Making Was pt. sent in by a medical professional or institution (SHAMIR Jansen, SALES FACILITATOR, urgent care, hospital, or [facility]...) When possible be specific @ -No Did you speak to anyone other than the patient for history (EMS, parent, family, police, friend...)? What history was obtained from this source @ -No Did you review nursing and triage notes (agree or disagree)? Why? @ -I reviewed and agree with nursing and triage notes Were old charts reviewed (outside hosp., previous admission, EMS record, old EKG, old radiological studies, urgent care reports/EKG's, [facility] records)? Report findings @ -No old charts were reviewed Differential Diagnosis (chest pain, altered mental status, abdominal pain women, abdominal pain men, vaginal bleeding, weakness, fever, dyspnea, syncope, headache, dizziness, GI bleed, back pain, seizure, CVA, palpatations, mental health, musculoskeletal)? @ -Differential Abdominal Pain Women: Appendicitis, Cholecystitis, diverticulosis, ischemic bowel, pancreatitis, hepatitis, UTI, gastroenteritis, AAA, incarcerated hernia, bowel obstruction, constipation, inflammatory bowel, hepatitis, peptic ulcer disease, splenic infarction, perforated viscus, vulvitis, ovarian torsion, PID, kidney stone, placenta abruption, this is not meant to be an all-inclusive list EKG interpreted by me (3pts min.). @ -None X-rays interpreted by me (1pt min.). @ -None done CT interpreted by me (1pt min.). @ -CT pelvis showing fatty liver, no nephrolithiasis noted no other acute process U/S interpreted by me (1pt. min.). @ -None done What testing was considered but not performed or refused? (CT, X-rays, U/S, labs)? Why? @ -None What meds were considered but not given or refused? Why? @ -None Did you discuss the management of the patient with other professionals (professionals i.e. SHAMIR Jansen, SALES FACILITATOR, lab, RT, psych nurse, mental health social worker, bulk plant agent, teacher, senior officer, supervisor case loading)? Give summary @ -No Was smoking cessation discussed for >3mins.? @ -No Was critical care preformed (if so, how long)? @ -No Were there social determinants of health that impacted care today? How? (Homelessness, low income, unemployed, alcoholism, drug addiction, transportation, low edu. Level, literacy, decrease access to med. care, skilled nursing, rehab)? @ -No Was there de-escalation of care discussed even if they declined (Discuss DNR or withdrawal of care, Hospice)? DNR status @ -No What co-morbidities impacted this encounter? (DM, HTN, Smoking, COPD, CAD, Cancer, CVA, ARF, Chemo, Hep., AIDS, mental health diagnosis, sleep apnea, morbid obesity)? @ -None Was patient admitted / discharged? Hospital course, mention meds given and route, prescriptions, significant lab abnormalities, going to OR and other pertinent info. @ -Discharge patient presented for urinary symptoms. Patient to have significant hematuria and WBCs on urinalysis CT was obtained rule out stone no evidence of stone 7 discharged on oral antibiotics. Undiagnosed new problem with uncertain prognosis? @ -No Drug Therapy requiring intensive monitoring for toxicity (Heparin, Nitro, Insulin, Cardizem)? @ -No Were any procedures done? @ -No Diagnosis/symptom? @ -UTI Acute, or Chronic, or Acute on Chronic? @ -Acute Uncomplicated (without systemic symptoms) or Complicated (systemic symptoms)? @ -[Complicated Side effects of treatment? @ -No Exacerbation, Progression, or Severe Exacerbation? @ -No Poses a threat to life or bodily function? How? (Chest pain, USA, IA, pneumonia, PE, COPD, DKA, ARF, appy, cholecystitis, CVA, Diverticulitis, Homicidal, Suicidal, threat to staff... and all critical care pts) @ -No - Lab Data Result diagrams: 08/01/24 07:46 08/01/24 07:46 Lab Results 08/01/24 08/01/24 08/01/24 Range/Units 06:44 07:46 07:46 WBC 13.31 H (4.50-10.00) 10*3/uL RBC 5.22 H (4.10-5.20) 10*6/uL Hgb 15.9 H (12.0-15.0) g/dL Hct 45.1 (37.2-46.3) % MCV 86.4 (80.0-97.0) fL MCH 30.5 (27.0-32.0) pg MCHC 35.3 (32.0-37.0) g/dL Plt Count 282 (140-440) 10*3/uL MPV 8.9 L (9.5-12.2) fL Immature Gran % (Auto) 0.5 % Neutrophils % 71.4 % Lymphocytes % 19.0 % Monocytes % 6.3 % Eosinophils % 1.6 % Basophils % 1.2 % Immature Gran # 0.06 H (0.00-0.04) 10*3/uL Neutrophils # 9.51 H (1.80-7.70) 10*3/uL Lymphocytes # 2.53 (0.90-5.00) 10*3/uL Monocytes # 0.84 (0.20-1.00) 10*3/uL Eosinophils # 0.21 (0.04-0.35) 10*3/uL Basophils # 0.16 H (0.00-0.10) 10*3/uL Sodium 138 (137-145) mmol/L Potassium 4.0 (3.5-5.1) mmol/L Chloride 103 (98-107) mmol/L Carbon Dioxide 27 (22-30) mmol/L Anion Gap 8 mmol/L BUN 11 (7-17) mg/dL Creatinine 0.60 (0.52-1.04) mg/dL Est GFR (CKD-EPI)AfAm >90 (>60 ml/min/1.73 sqM) Est GFR (CKD-EPI)NonAf >90 (>60 ml/min/1.73 sqM) Glucose 167 H (74-99) mg/dL Plasma Lactic Acid Galen (0.7-2.0) mmol/L Calcium 9.8 (8.4-10.2) mg/dL Total Bilirubin 1.5 H (0.2-1.3) mg/dL AST 55 H (14-36) U/L ALT 33 (4-34) U/L Alkaline Phosphatase 112 (38-126) U/L Total Protein 7.8 (6.3-8.2) g/dL Albumin 4.4 (3.5-5.0) g/dL Lipase 98 (23-300) U/L Urine Color Yellow Urine Appearance Turbid H (Clear) Urine pH 5.5 (5.0-8.0) Ur Specific Stanley 1.019 (1.001-1.035) Urine Protein 2+ H (Negative) Urine Glucose (UA) 3+ H (Negative) Urine Ketones Negative (Negative) Urine Blood Large H (Negative) Urine Nitrite Negative (Negative) Urine Bilirubin Negative (Negative) Urine Urobilinogen <2.0 (<2.0) mg/dL Ur Leukocyte Esterase Large H (Negative) Urine RBC >182 H (0-5) /hpf Urine WBC >182 H (0-5) /hpf Urine WBC Clumps Many H (None) /hpf Urine Mucus Moderate H (None) /hpf 08/01/ Range/Units 07:46 WBC (4.50-10.00) 10*3/uL RBC (4.10-5.20) 10*6/uL Hgb (12.0-15.0) g/dL Hct (37.2-46.3) % MCV (80.0-97.0) fL MCH (27.0-32.0) pg MCHC (32.0-37.0) g/dL Plt Count (140-440) 10*3/uL MPV (9.5-12.2) fL Immature Gran % (Auto) % Neutrophils % % Lymphocytes % % Monocytes % % Eosinophils % % Basophils % % Immature Gran # (0.00-0.04) 10*3/uL Neutrophils # (1.80-7.70) 10*3/uL Lymphocytes # (0.90-5.00) 10*3/uL Monocytes # (0.20-1.00) 10*3/uL Eosinophils # (0.04-0.35) 10*3/uL Basophils # (0.00-0.10) 10*3/uL Sodium (137-145) mmol/L Potassium (3.5-5.1) mmol/L Chloride (98-107) mmol/L Carbon Dioxide (22-30) mmol/L Anion Gap mmol/L BUN (7-17) mg/dL Creatinine (0.52-1.04) mg/dL Est GFR (CKD-EPI)AfAm (>60 ml/min/1.73 sqM) Est GFR (CKD-EPI)NonAf (>60 ml/min/1.73 sqM) Glucose (74-99) mg/dL Plasma Lactic Acid Galen 1.4 (0.7-2.0) mmol/L Calcium (8.4-10.2) mg/dL Total Bilirubin (0.2-1.3) mg/dL AST (14-36) U/L ALT (4-34) U/L Alkaline Phosphatase (38-126) U/L Total Protein (6.3-8.2) g/dL Albumin (3.5-5.0) g/dL Lipase (23-300) U/L Urine Color Urine Appearance (Clear) Urine pH (5.0-8.0) Ur Specific Stanley (1.001-1.035) Urine Protein (Negative) Urine Glucose (UA) (Negative) Urine Ketones (Negative) Urine Blood (Negative) Urine Nitrite (Negative) Urine Bilirubin (Negative) Urine Urobilinogen (<2.0) mg/dL Ur Leukocyte Esterase (Negative) Urine RBC (0-5) /hpf Urine WBC (0-5) /hpf Urine WBC Clumps (None) /hpf Urine Mucus (None) /hpf Disposition Clinical Impression: Urinary tract infection Disposition: HOME SELF-CARE Condition: Stable Instructions (If sedation given, give patient instructions): Urinary Tract Infection in Women (ED) Additional Instructions: Please return to the Emergency Department if symptoms worsen or any other concerns. Prescriptions: Cephalexin [Keflex] 500 mg PO Q8HR #30 cap Is patient prescribed a controlled substance at d/c from ED?: No Referrals: Nonstaff,Physician [Primary Care Provider] - 1-2 days Time of Disposition: 09:17
[2024-08-01] MEDS: SODIUM CHLORIDE 0.9% 1,000 ML IV SCH (07:46)
[2024-08-01] MEDS: KETOROLAC 15 MG/ML 1 ML VIAL IVP STA (07:49)
[2024-08-01 07:55] LABS: Basophils # (A) 0.16 10*3/uL (0.00-0.10); Basophils % (A) 1.2 %; Eosinophils # (A) 0.21 10*3/uL (0.04-0.35); Eosinophils % (A) 1.6 %; HCT 45.1 % (37.2-46.3); HGB 15.9 g/dL (12.0-15.0); Lymphocytes # (A) 2.53 10*3/uL (0.90-5.00); MCH 30.5 pg (27.0-32.0); MCHC 35.3 g/dL (32.0-37.0); MCV 86.4 fL (80.0-97.0); Mean Platelet Volume 8.9 fL (9.5-12.2); Monocytes # (A) 0.84 10*3/uL (0.20-1.00); Monocytes % (A) 6.3 %; Neutrophils # (A) 9.51 10*3/uL (1.80-7.70); Neutrophils % (A) 71.4 %; Platelet Count 282 10*3/uL (140-440); RBC 5.22 10*6/uL (4.10-5.20); RDW 12.1 % (11.5-14.5); WBC 13.31 10*3/uL (4.50-10.00)
[2024-08-01 08:12] LABS: ALT 33 U/L (4-34); AST 55 U/L (14-36); African American GFR (CKD) >90 (>60 ml/min/1.73 sqM); Albumin 4.4 g/dL (3.5-5.0); Alkaline Phosphatase 112 U/L (38-126); Anion Gap 8 mmol/L; Blood Urea Nitrogen 11 mg/dL (7-17); Calcium 9.8 mg/dL (8.4-10.2); Carbon Dioxide 27 mmol/L (22-30); Chloride 103 mmol/L (98-107); Glucose 167 mg/dL (74-99); Lipase 98 U/L (23-300); Non-African American GFR(CKD) >90 (>60 ml/min/1.73 sqM); Sodium 138 mmol/L (137-145); Total Bilirubin 1.5 mg/dL (0.2-1.3); Total Protein 7.8 g/dL (6.3-8.2)
--- NOTE | 2024-08-01 08:20 | CT ---
EXAMINATION TYPE: CT abdomen pelvis wo con DATE OF EXAM: 08/01/2024 8:11 AM COMPARISON: None. CLINICAL INDICATION: Female, 54 years old with history of flank pain TECHNIQUE: CT of the abdomen and pelvis without contrast. Sagittal and coronal reformats were created on a separate workstation. CT DLP: 711.7 mGycm, Automated exposure control for dose reduction was used. FINDINGS: LOWER CHEST: RCA coronary artery calcifications. Heart borderline in size without pericardial effusio n. Mild dependent atelectasis lower lungs. ABDOMEN LIVER: Enlarged 19.9 cm with mildly diminished attenuation. GALLBLADDER AND BILE DUCTS: Unremarkable. PANCREAS: Unremarkable. SPLEEN: Unremarkable. ADRENAL GLANDS: Unremarkable. KIDNEYS AND URETERS: No evidence of hydronephrosis or renal calculus. The ureters are unremarkable. PELVIS BLADDER: Moderate circumferential bladder wall thickening. REPRODUCTIVE: Uterus retroverted. Left ovary is visualized. Right ovary not well delineated from cinthia cent bowel loops. No abnormal fluid collection in the pelvis or pelvic lymphadenopathy. ABDOMEN & PELVIS STOMACH AND BOWEL: No evidence of bowel obstruction. Normal appendix. Mild stool burden. No pericolon ic inflammatory change. PERITONEUM/RETROPERITONEUM: No evidence of pneumoperitoneum or free fluid. VASCULATURE: Scattered mild atherosclerotic calcifications. No evidence of aortic aneurysm. MUSCULOSKELETAL: Spinal stimulator ray extending up beyond the [id number]. Mild degenerative disc disease L5-S1. LYMPH NODES: No gross evidence for lymphadenopathy. SOFT TISSUE/ABDOMINAL WALL: Unremarkable IMPRESSION: 1. Moderate circumferential bladder wall thickening. Correlate for possible cystitis. 2. No nephrolithiasis or hydronephrosis. 3. Hepatomegaly and 19.9 cm with mild fatty infiltration suggested. [facility], , 08/01/2024 8:18 AM
[2024-08-01] MEDS: HYDROmorphone 0.5 MG/0.5 ML SYRINGE IVP STA (08:48)
[2024-08-01] MEDS: cefTRIAXone IN SWFI 1,000 MG/10 ML SYRINGE IVP STA (08:52)
[2024-08-01 10:35] VITALS: BP 118/60; PULSE 56; RESP 16; TEMP 98
[2024-08-01] MEDS: ACET/COD 300 MG/30 MG STARTER PACK 6 TAB BTL PO STA (10:40)
== END 2024-08-01 10:42 | disposition home or self-care (01) ==
LOC: EC 06:20
DX: N39.0 Urinary tract infection, site not specified (principal); F17.200 Nicotine dependence, unspecified, uncomplicated; Z88.5 Allergy status to narcotic agent; Z88.1 Allergy status to other antibiotic agents; Z88.8 Allergy status to other drugs, medicaments and biological substances
CPT/HCPCS: 36415; 80053; 83605; 83690; 85025; 81001; 87086; 74176; 99284; 96374; 96375 ×2; 96361; J0696; J1885; J1171

== ENCOUNTER → 2024-08-09 | Outpatient (CLI) | payer MEDICARE ==
--- NOTE | 2024-08-09 15:37 | US ---
EXAMINATION TYPE: US kidneys/renal and bladder DATE OF EXAM: 08/09/2024 COMPARISON: CT 08/01/24 CLINICAL INDICATION: Female, 54 years old with history of E119 ABN LABS; abn labs TECHNIQUE: Grayscale imaging of the bilateral kidneys and urinary bladder: FINDINGS: EXAM MEASUREMENTS: Right Kidney: 11.3x4.7x6.1 cm Left Kidney: 10.7x5.6 cm Right Kidney: No hydronephrosis or masses seen Left Kidney: No hydronephrosis or masses seen, dromedary hump Bladder: wall measures up to 0.5cm Bilateral Jets seen: Yes There is no evidence for hydronephrosis at this point in time. No nephrolithiasis is seen. No kris s are identified. The urinary bladder is anechoic. IMPRESSION: No significant abnormality seen. [facility], , 08/09/2024 3:35 PM
== END | disposition home or self-care (01) ==
LOC: RADUSWWP 14:01
PROVIDERS: ATTEND Family Medicine
DX: E11.9 Type 2 diabetes mellitus without complications (principal)
CPT/HCPCS: 76770